=== PATIENT | male | born 1960 | race African-American/Black ===

== ENCOUNTER → 2020-03-05 | Outpatient (CLI) | payer OTHER ==
[2020-03-05 10:15] LABS: ABSOLUTE EOSINOPHILS # (AUTO) 0.1 10^3/uL (0.0-0.6); ABSOLUTE LYMPHOCYTES (AUTO) 1.1 10^3/uL (0.5-4.7); ABSOLUTE MONOCYTES (AUTO) 0.4 10^3/uL (0.1-1.4); ABSOLUTE NEUT (AUTO) 1.9 10^3/uL (1.7-8.2); BASOPHILS % (AUTO) 0.7 % (0-2); EOSINOPHILS % (AUTO) 3.2 % (0-6); HEMATOCRIT 48.1 % (37.9-51.0); HEMOGLOBIN 15.5 g/dL (13.5-17.0); LYMPHOCYTES % (AUTO) 30.3 % (13-45); MEAN CORPUSCULAR HEMOGLOBIN 29.4 pg (27.0-33.4); MEAN CORPUSCULAR HGB CONC 32.1 g/dL (32.0-36.0); MEAN CORPUSCULAR VOLUME 91 fl (80-97); MONOCYTES % (AUTO) 11.6 % (3-13); PLATELET COUNT 124 10^3/uL (150-450); RED BLOOD COUNT 5.27 10^6/uL (4.35-5.55); RED CELL DISTRIBUTION WIDTH 17.6 % (11.5-14.0); SEGMENTED NEUTROPHILS % (AUTO) 54.2 % (42-78); TOTAL CELLS COUNTED % (AUTO) 100 %; WHITE BLOOD COUNT 3.6 10^3/uL (4.0-10.5)
[2020-03-05 10:50] LABS: ALBUMIN 3.5 g/dL (3.5-5.0); ALKALINE PHOSPHATASE 141 U/L (38-126); ANION GAP 7 (5-19); ASPARTATE AMINO TRANSFERASE 19 U/L (17-59); BILIRUBIN,TOTAL 0.5 mg/dL (0.2-1.3); BLOOD UREA NITROGEN 34 mg/dL (7-20); CALCIUM 7.9 mg/dL (8.4-10.2); CARBON DIOXIDE 13 mmol/L (22-30); CHLORIDE 122 mmol/L (98-107); CHOLESTEROL 125.54 mg/dL (0-200); GLUCOSE 159 mg/dL (75-110); TOTAL PROTEIN 6.7 g/dL (6.3-8.2); TRIGLYCERIDES 64 mg/dL (<150)
[2020-03-05 11:01] LABS: DIRECT LDL 74 mg/dL (<100)
== END ==
LOC: CCC 09:21
PROVIDERS: ATTEND Family Medicine
DX: Z13.9 Encounter for screening, unspecified (principal)
CPT/HCPCS: 36415; 80053; 80061; 83036; 84443; 85025

== ENCOUNTER 2020-05-03 12:32 | Inpatient (IN) | payer SELFPAY ==
[2020-05-03] MEDS ORDERED: NORMAL SALINE 1000 ML 1,000 ML IV ONE ×3 (13:10→15:25)
--- NOTE | 2020-05-03 13:14 | ER Document Report ---
ED Medical Screen (RME) - General Chief Complaint: High Blood Sugar Stated Complaint: HIGH BLOOD SUGAR Time Seen by Provider: 05/03/20 13:08 Primary Care Provider: ANAID WHITNEY [Primary Care Provider] - Follow up as needed Mode of Arrival: Ambulatory Information source: Patient Notes: 59-year-old male presents to ED for complaint of blood sugar at home of 455. He states he just moved to the area. He states he has been off of his diabetes medicine for about a month or month and a half. He states he has a history of diabetes and low potassium. He states he is not on any medications at all right now. He states he is trying to get his insurance changed to this area and establish with a new doctor but he needs his medications. He states he has de creased kidney function due to his diabetes. Patient is alert oriented respirations regular nonlabored at this time. I have ordered the DKA protocol to get him started. I have greeted and performed a rapid initial assessment of this patient. A comprehensive ED assessment and evaluation of the patient, analysis of test results and completion of medical decision making process will be conducted by an additional ED providers. Physical Exam - Vital signs Vitals: Temp Pulse Resp BP Pulse Ox 98.7 F 85 18 130/61 H 98 05/03/20 12:41 05/03/20 12:41 05/03/20 12:41 05/03/20 12:41 05/03/20 12:41 Course - Vital Signs Vital signs: Temp Pulse Resp BP Pulse Ox 98.7 F 85 18 130/61 H 98 05/03/20 12:41 05/03/20 12:41 05/03/20 12:41 05/03/20 12:41 05/03/20 12:41 Doctor's Discharge - Discharge Referrals: ANAID WHITNEY [Primary Care Provider] - Follow up as needed
[2020-05-03 14:07] LABS: VENOUS BLOOD BASE EXCESS -18.3 mmol/L; VENOUS BLOOD HCO3 11.2 mmol/L (20-32); VENOUS BLOOD PCO2 39.4 mmHg (35-63)
[2020-05-03 14:10] LABS: VENOUS BLOOD PH 7.07 (7.30-7.42)
[2020-05-03 14:10] LABS: ABSOLUTE EOSINOPHILS # (AUTO) 0.1 10^3/uL (0.0-0.6); ABSOLUTE MONOCYTES (AUTO) 0.4 10^3/uL (0.1-1.4); ABSOLUTE NEUT (AUTO) 2.4 10^3/uL (1.7-8.2); BASOPHILS % (AUTO) 0.5 % (0-2); EOSINOPHILS % (AUTO) 2.2 % (0-6); HEMATOCRIT 47.9 % (37.9-51.0); HEMOGLOBIN 15.5 g/dL (13.5-17.0); LYMPHOCYTES % (AUTO) 25.9 % (13-45); MEAN CORPUSCULAR HEMOGLOBIN 29.2 pg (27.0-33.4); MEAN CORPUSCULAR HGB CONC 32.4 g/dL (32.0-36.0); MEAN CORPUSCULAR VOLUME 90 fl (80-97); PLATELET COUNT 130 10^3/uL (150-450); RED BLOOD COUNT 5.31 10^6/uL (4.35-5.55); RED CELL DISTRIBUTION WIDTH 16.3 % (11.5-14.0); SEGMENTED NEUTROPHILS % (AUTO) 60.4 % (42-78); TOTAL CELLS COUNTED % (AUTO) 100 %; WHITE BLOOD COUNT 3.9 10^3/uL (4.0-10.5)
[2020-05-03 14:21] LABS: APPEARANCE,URINE CLEAR; BILIRUBIN,URINE NEGATIVE (NEGATIVE); COLOR,URINE STRAW; GLUCOSE, URINE >=500 mg/dL (NEGATIVE); KETONES,URINE NEGATIVE (NEGATIVE); LEUKOCYTE ESTERASE,URINE MODERATE (NEGATIVE); NITRITE,URINE NEGATIVE (NEGATIVE); PROTEIN,URINE 100 mg/dL (NEGATIVE); URINE SPECIFIC GRAVITY 1.008; UROBILINOGEN,URINE NEGATIVE mg/dL (<2.0)
[2020-05-03 14:32] LABS: ALBUMIN 3.5 g/dL (3.5-5.0); ALKALINE PHOSPHATASE 192 U/L (38-126); ANION GAP 12 (5-19); ASPARTATE AMINO TRANSFERASE 20 U/L (17-59); BILIRUBIN,DIRECT 0.3 mg/dL (0.0-0.4); BILIRUBIN,TOTAL 0.6 mg/dL (0.2-1.3); BLOOD UREA NITROGEN 34 mg/dL (7-20); CALCIUM 7.7 mg/dL (8.4-10.2); CHLORIDE 116 mmol/L (98-107); POTASSIUM 3.5 mmol/L (3.6-5.0); TOTAL PROTEIN 6.6 g/dL (6.3-8.2)
[2020-05-03 14:58] LABS: CARBON DIOXIDE 10 mmol/L (22-30); GLUCOSE 460 mg/dL (75-110)
[2020-05-03] MEDS ORDERED: NORMAL SALINE 100 ML with INSULIN REGULAR, HUMAN 100 UNIT IV PRN ×2 (15:25)
--- NOTE | 2020-05-03 15:34 | ER Document Report ---
ED Blood Sugar Problem - General Chief Complaint: High Blood Sugar Stated Complaint: HIGH BLOOD SUGAR Time Seen by Provider: 05/03/20 13:08 Primary Care Provider: [facility]ANA[facility] [Primary Care Provider] - Follow up as needed Mode of Arrival: Ambulatory Information source: Patient - HPI Notes: Patient comes in complaining of weakness and being tired. He states that he has been out of his diabetic oral medication for approximately 2 months. He states this is because he recently moved and has been unable to afford his medicines. He states he took his blood sugar at home over the weekend and it was 600 today he took it again and it was 450. He states he called his doctor at the [facility] and they recommended he come to the emergency department. He states he has been urinating more than normal. He denies any fevers cough or cold symptoms. No pain anywhere. He denies any vomiting or diarrhea. He states he was only taking 1 medicine for diabetes and it was an oral medicine. He denies any insulin usage ever. His weakness has been constant. Is been moderate to severe. Is worse with exertion and better with rest. It does radiate throughout his body. - Related Data Allergies/Adverse Reactions: No Known Allergies Allergy (Unverified 05/03/20 13:40) Past Medical History - General Information source: Patient - Social History Smoking Status: Never Smoker Frequency of alcohol use: None Drug Abuse: None Family History: Reviewed & Not Pertinent Endocrine Medical History: Reports: Hx Diabetes Mellitus Type 2 Review of Systems - Review of Systems Constitutional: denies: Chills, Fever Cardiovascular: denies: Chest pain, Palpitations Respiratory: denies: Cough, Short of breath -: Yes All other systems reviewed and negative Physical Exam - Vital signs Vitals: Temp Pulse Resp BP Pulse Ox 98.7 F 85 18 130/61 H 98 05/03/20 12:41 05/03/20 12:41 05/03/20 12:41 05/03/20 12:41 05/03/20 12:41 Interpretation: Normal - General General appearance: Appears well, Alert - HEENT Head: Normocephalic, Atraumatic Eyes: Normal Pupils: PERRL - Respiratory Respiratory status: No respiratory distress Chest status: Nontender Breath sounds: Normal Chest palpation: Normal - Cardiovascular Rhythm: Regular Heart sounds: Normal auscultation Murmur: No - Abdominal Inspection: Normal Distension: No distension Bowel sounds: Normal Tenderness: Nontender Organomegaly: No organomegaly - Back Back: Normal, Nontender - Extremities General upper extremity: Normal inspection, Nontender, Normal color, Normal ROM, Normal temperature General lower extremity: Normal inspection, Nontender, Normal color, Normal ROM, Normal temperature, Normal weight bearing. No: Rosales's sign - Neurological Neuro grossly intact: Yes Cognition: Normal Orientation: AAOx4 Samantha Coma Scale Eye Opening: Spontaneous [place] Coma Scale Verbal: Oriented Samantha Coma Scale Motor: Obeys Commands Samantha Coma Scale Total: 15 Speech: Normal Motor strength normal: LUE, RUE, LLE, RLE Sensory: Normal - Psychological Associated symptoms: Normal affect, Normal mood - Skin Skin Temperature: Warm Skin Moisture: Dry Skin Color: Normal Course - Re-evaluation Re-evalutation: 05/03/20 15:31 Patient presents with weakness and elevated blood sugar. He is acidotic with a pH of 7.07 however he has a normal heart rate and a normal blood pressure. He has been out of his oral medication for over 2 months. Patient will be started on fluids and an insulin drip and admitted to the hospital. - Vital Signs Vital signs: Temp Pulse Resp BP Pulse Ox 98.7 F 85 18 130/61 H 95 05/03/20 12:41 05/03/20 12:41 05/03/20 12:41 05/03/20 12:41 05/03/20 15:00 - Laboratory Result Diagrams: 05/03/20 13:38 05/03/20 13:38 Laboratory results interpreted by me: 05/03/20 05/03/20 05/03/20 13:16 13:38 13:38 WBC 3.9 L RDW 16.3 H Plt Count 130 L VBG pH VBG HCO3 Potassium 3.5 L Chloride 116 H Carbon Dioxide 10 L* BUN 34 H Creatinine 2.72 H Est GFR ( Amer) 29 L Est GFR (MDRD) Non-Af 24 L Glucose 460 H* POC Glucose 407 H* Calcium 7.7 L Alkaline Phosphatase 192 H Urine Protein Urine Glucose (UA) Urine Blood Ur Leukocyte Esterase 05/03/20 05/03/20 13:38 13:42 WBC RDW Plt Count VBG pH 7.07 L* VBG HCO3 11.2 L Potassium Chloride Carbon Dioxide BUN Creatinine Est GFR ( Amer) Est GFR (MDRD) Non-Af Glucose POC Glucose Calcium Alkaline Phosphatase Urine Protein 100 H Urine Glucose (UA) >=500 H Urine Blood SMALL H Ur Leukocyte Esterase MODERATE H - EKG Interpretation by Me EKG shows normal: Sinus rhythm Rate: Normal - 88 Rhythm: NSR [place]/QRS: No: Right axis deviation, Left axis deviation Critical Care Note - Critical Care Note Total time excluding time spent on procedures (mins): 40 Comments: approx 40 min of CC time was spent on this pt doing mutliple recheckcs, reviewing labs, discussing with consultants and talking with family Discharge - Discharge Clinical Impression: Diabetic ketoacidosis Qualifiers: Diabetes mellitus type: type 2 Diabetes mellitus complication detail: without coma Qualified Code(s): E11.10 - Type 2 diabetes mellitus with ketoacidosis without coma Condition: Critical Disposition: ADMITTED INPATIENT Admitting Provider: Paulette (Hospitalist) Unit Admitted: IMCU [facility] [Primary [facility] Provider] - Follow up as needed
[2020-05-03] MEDS ORDERED: DEXTROSE 40% GEL 15 GM TUBE PO PRN ×2 (17:42)
[2020-05-03] MEDS ORDERED: DEXTROSE 50%-WATER 25 GM/50 ML DISP.SYRIN IV PRN ×2 (17:42)
[2020-05-03] MEDS ORDERED: GLUCAGON,HUMAN RECOMB 1 MG INJ IM PRN (17:42)
[2020-05-03] MEDS ORDERED: NORMAL SALINE 1000 ML 1,000 ML IV PRN (17:45)
[2020-05-03] MEDS ORDERED: ONDANSETRON HCL INJ/PF 4 MG/2 ML SDV IV PRN (18:10)
[2020-05-03] MEDS ORDERED: ACETAMINOPHEN 325 MG TABLET PO PRN (18:10)
[2020-05-03 18:55] LABS: ARTERIAL BLOOD BASE EXCESS -18.8 mmol/L; ARTERIAL BLOOD FIO2 21%; ARTERIAL BLOOD HCO3 9.4 mmol/L (20-24); ARTERIAL BLOOD O2 SATURATION 96.4 % (94-98); ARTERIAL BLOOD PCO2 29.9 mmHg (35-45); ARTERIAL BLOOD PO2 110.6 mmHg (80-100); ARTERIAL BLOOD TOTAL CO2 10.3 mmol/L (23-27)
[2020-05-03 18:57] LABS: ARTERIAL BLOOD PH 7.11 (7.35-7.45)
[2020-05-03] MEDS ORDERED: POTASSIUM CHLORIDE 10 MEQ TABLET.ER PO ONE (19:00)
[2020-05-03] MEDS ORDERED: INSULIN LISPRO 100 UNIT/ML 3 ML VIAL ONE (19:06)
--- NOTE | 2020-05-03 19:12 | RADIOLOGY REPORT (SQ) ---
EXAM DESCRIPTION: CHEST SINGLE VIEW IMAGES COMPLETED DATE/TIME: 05/03/2020 6:56 pm REASON FOR STUDY: dyspnea, cough COMPARISON: None. TECHNIQUE: Single frontal radiographic view of the chest acquired. NUMBER OF VIEWS: One view. LIMITATIONS: Partial expiratory lung volumes. FINDINGS: LUNGS AND PLEURA: No pneumothorax. No consolidation or pleural effusion. MEDIASTINUM AND HILAR STRUCTURES: No contour abnormalities. HEART AND VASCULAR STRUCTURES: Heart normal size. BONES: No acute findings. HARDWARE: None in the chest. OTHER: No other significant finding. IMPRESSION: NO ACUTE FINDINGS. TECHNICAL DOCUMENTATION: JOB ID: [id number] 2010 [employer]- All Rights Reserved Reading location - IP/workstation name: [email or web address]
[2020-05-03] MEDS: NORMAL SALINE 1000 ML 1,000 ML IV PRN (19:13)
--- NOTE | 2020-05-03 19:34 | PDOC H&P ---
History of Present Illness Admission Date/PCP: 05/03/20 15:53 [facility] Patient complains of: Elevated blood sugar History of Present Illness: RADHA FLORES is a 59 year old male with a past medical history of diabetes mellitus type 2 for over 20 years. He did have a hemoglobin A1c level tested in February and his provider said it was "good ". Unfortunately they moved from [place] in June and he is reestablishing care locally. He has been out of all of his medicines for 2 months. He states that he was on potassium and sodium bicarbonate tablets in the past. For his diabetes he had been on Lantus in the past. He had a trial of Januvia. He believes it was 25 mg daily and this was discontinued. The last prescription was for Trulicity given once a week but he ran out of that medication as well. He has a history of kidney st ones and reports that he has "one functioning kidney ". He has a history of multiple kidney stones and has undergone lithotripsy. He has a nonproductive cough and denies any fever or chills. He denies known exposure to anyone under investigation or positive for COVID 19. He does state that over the last several weeks his sugars have slowly gotten better. He was initially 600 and it has worked its way down to the 460 tested on admission today. With IV fluids alone his glucose has decreased to 274. He is not sure why he was on the sodium bicarbonate tablets. He believes that it was for stomach acid/reflux. Because of his long history of kidney stones it may have been more related to chronic kidney disease but he is unable to provide full details. Venous blood gas revealed a pH of 7.07 with a PCO2 of 39.4 and a bicarb of 11.2. White blood cell count was slightly low at 3.9 with a hemoglobin of 15.5 and a platelet count of 130. Potassium was 3.5 with a CO2 of 10. BUN was 34 with a creatinine of 2.72 and as noted above his initial glucose was 460. Calcium was 7.7 with a normal albumin. EKG showed normal sinus rhythm with a rate of 88 bpm and no abnormalities. With IV fluids alone (the patient was not given any insulin in the emergency department) his glucose has come down to 274. Urinalysis was negative for ketones but the patient did have glucosuria, proteinuria as well as positive leukocyte esterase and 26 white blood cells per high-power field. Urine culture has been added to the order set. Past Medical History Cardiac Medical History: Denies: Congestive Heart Failure, Coronary Artery Disease, Myocardial Infarction, Hyperlipidema, Hypertension, Peripheral Vascular Disease, Pulmonary Embolism Pulmonary Medical History: Denies: Chronic Obstructive Pulmonary Disease (COPD), Intubation, Pneumonia, Respiratory Failure EENT Medical History: Reports: Cataracts Neurological Medical History: Denies: Ischemic CVA Endocrine Medical History: Reports: Diabetes Mellitus Type 2 Denies: Hyperthyroidism, Hypothyroidism Renal/ Medical History: Reports: Chronic Kidney Disease, Nephrolithiasis Malignancy Medical History: Reports: None GI Medical History: Reports: Gastroesophageal Reflux Disease Denies: Cirrhosis, Diverticulitis, Hepatitis, Peptic Ulcer Disease Musculoskeltal Medical History: Reports: Arthritis Skin Medical History: Denies: Eczema, Psoriasis Psychiatric Medical History: Denies: Alcohol Dependency, Dementia, Depression, Substance Abuse, Tobacco Dependency Traumatic Medical History: Reports: None Hematology: Denies: Anemia, Sickle Cell Disease, Bleeding Tendencies Infectious Medical History: Reports: None Past Surgical History Past Surgical History: Reports: Other - Lithotripsy Social History Information Source: Patient Lives with: Spouse/Significant other Smoking Status: Never Smoker Electronic Cigarette use?: No Frequency of Alcohol Use: None Hx Recreational Drug Use: No Hx Prescription Drug Abuse: No - Advance Directive Resuscitation Status: Full Code Surrogate healthcare decision maker:: His Molly would make decisions if the patient is incapacitated Family History Family History: DM, Hypertension Parental Family History Reviewed: Yes Children Family History Reviewed: NA Sibling(s) Family History Reviewed.: Yes Medication/Allergy Allergies/Adverse Reactions: No Known Allergies Allergy (Unverified 05/03/20 13:40) Review of Systems All systems: reviewed and no additional remarkable complaints except as stated Constitutional: PRESENT: fatigue Eyes: PRESENT: visual disturbances - Bilateral cataracts Respiratory: PRESENT: cough Gastrointestinal: PRESENT: other - Reflux Genitourinary: PRESENT: nocturia - 1-2 times per night Musculoskeletal: PRESENT: muscle weakness - Left hand decreased heater mechanic strength Neurological: PRESENT: tingling - Occasional tingling in his legs Endocrine: PRESENT: polyuria - Increased urine output lately Physical Exam Vital Signs: Temp Pulse Resp BP Pulse Ox 98.7 F 85 15 130/61 H 97 05/03/20 12:41 05/03/20 12:41 05/03/20 14:25 05/03/20 12:41 05/03/20 17:00 Intake & Output 05/02/20 05/03/20 05/04/20 06:59 06:59 06:59 Intake Total 3000 Balance 3000 Weight 81.8 kg General appearance: PRESENT: no acute distress, cooperative, well-developed, well-nourished. ABSENT: disheveled Head exam: PRESENT: atraumatic, normocephalic Eye exam: PRESENT: conjunctival injection, conjunctiva pink, EOMI, PERRLA. ABSENT: periorbital swelling, scleral icterus - Dirty sclera Ear exam: PRESENT: normal external ear exam. ABSENT: bleeding, drainage Mouth exam: PRESENT: dry mucosa, neck supple, tongue midline Neck exam: PRESENT: full ROM. ABSENT: carotid bruit, JVD, lymphadenopathy, thyromegaly, tracheostomy Respiratory exam: PRESENT: clear to auscultation gina, symmetrical, unlabored. ABSENT: accessory muscle use, prolonged expiratory phas, rales, rhonchi, tachypnea, wheezes Cardiovascular exam: PRESENT: RRR, +S1, +S2, systolic murmur - 2/6. ABSENT: bradycardia, diastolic murmur, irregular rhythm, tachycardia Pulses: PRESENT: normal radial pulses, normal dorsalis pedis pul GI/Abdominal exam: PRESENT: normal bowel sounds, soft. ABSENT: distended, gua rding, mass, tenderness Rectal exam: PRESENT: deferred Gentrourinary exam: ABSENT: indwelling catheter Extremities exam: PRESENT: full ROM. ABSENT: calf tenderness, joint swelling, pedal edema Musculoskeletal exam: PRESENT: ambulatory, normal inspection. ABSENT: deformity, dislocation Neurological exam: PRESENT: alert, awake, oriented to person, oriented to place, oriented to time, oriented to situation, CN II-XII grossly intact, motor sensory deficit - Leg exam was normal with regard to strength and gross sensation. Unable to elicit patellar reflexes. Right upper extremity 5/5 strength with no gross abnormal sensation. The left hand heater mechanic strength was 3/5.. ABSENT: altered Psychiatric exam: PRESENT: appropriate affect, normal mood. ABSENT: agitated, anxious Focused psych exam: ABSENT: delusional, paranoid, restlessness Skin exam: PRESENT: dry, intact, normal color, warm. ABSENT: rash Results Laboratory Results: 05/03/20 13:38 05/03/20 13:38 05/03/20 05/03/20 05/03/20 13:38 13:38 13:38 WBC 3.9 L RBC 5.31 Hgb 15.5 Hct 47.9 MCV 90 MCH 29.2 MCHC 32.4 RDW 16.3 H Plt Count 130 L Seg Neutrophils % 60.4 VBG pH VBG pCO2 VBG HCO3 VBG Base Excess Sodium 137.9 Potassium 3.5 L Chloride 116 H Carbon Dioxide 10 L* Anion Gap 12 BUN 34 H Creatinine 2.72 H Est GFR ( Amer) 29 L Glucose 460 H* Calcium 7.7 L Total Bilirubin 0.6 AST 20 Alkaline Phosphatase 192 H Total Protein 6.6 Albumin 3.5 Urine Color STRAW Urine Appearance CLEAR Urine pH 7.0 Ur Specific [place] 1.008 Urine Protein 100 H Urine Glucose (UA) >=500 H Urine Ketones NEGATIVE Urine Blood SMALL H Urine Nitrite NEGATIVE Ur Leukocyte Esterase MODERATE H Urine WBC (Auto) 26 Urine RBC (Auto) 1 05/03/20 13:42 WBC RBC Hgb Hct MCV MCH MCHC RDW Plt Count Seg Neutrophils % VBG pH 7.07 L* VBG pCO2 39.4 VBG HCO3 11.2 L VBG Base Excess -18.3 Sodium Potassium Chloride Carbon Dioxide Anion Gap BUN Creatinine Est GFR ( Amer) Glucose Calcium Total Bilirubin AST Alkaline Phosphatase Total Protein Albumin Urine Color Urine Appearance Urine pH Ur Specific [place] Urine Protein Urine Glucose (UA) Urine Ketones Urine Blood Urine Nitrite Ur Leukocyte Esterase Urine WBC (Auto) Urine RBC (Auto) Assessment and Plan - Diagnosis (1) Hyperglycemia due to type 2 diabetes mellitus Qualifiers: Diabetes mellitus intermission coordinator insulin use: with skilled nursing use Qualified Code(s): E11.65 - Type 2 diabetes mellitus with hyperglycemia; Z79.4 - intermediate (current) use of insulin Is this a current diagnosis for this admission?: Yes Plan: 05/03/2020-the patient has been out of his medications for diabetes for approximately 6 to 8 weeks. He has been checking his glucoses and they have been as high as 600. I do not believe he has seen a practitioner since February when he had blood work and was told that his hemoglobin A1c was "good ". His pH was 7.07 but urinalysis was negative for ketones. He does take 2 sodium bicarbonate tablets 3 times a day and explained to me that was for stomach acid. With fluids alone his glucose came down to 272. I will put the patient on split dose Lantus as well as a Humalog sliding scale with Accu-Cheks at mealtime and bedtime. I have ordered a basic metabolic panel for now and at 23:00 tonight as well as daily labs for the next several days. (2) Metabolic acidosis due to diabetes mellitus Is this a current diagnosis for this admission?: Yes Plan: 05/03/2020-the patient reports that he was on 2 sodium bicarbonate tablets 3 times a day. He is under the impression that this was for stomach acid but he was never on a proton pump inhibitor or H2 jaylan. It is more likely that this was due to a metabolic derangement then purely acid. We will need to get more detailed history. For the time being we will monitor his pH and I have resumed his sodium bicarbonate 1300 mg p.o. with meals. (3) Hypokalemia Is this a current diagnosis for this admission?: Yes Plan: Potassium is 3.5. With the aggressive hydration his potassium will drop and he has been on potassium chloride as an outpatient. I will continue KCl 40 mEq bid and monitor his electrolytes. (4) Acute kidney injury superimposed on chronic kidney disease Is this a current diagnosis for this admission?: Yes Plan: The BUN and creatinine was 34 and 2.72 respectively. From his history of kidney stones and the "nonfunctioning kidney "it is more likely acute on chronic kidney failure. There is likely a component of dehydration from polyuria from his hyperglycemia. His oropharynx was extremely dry as well. He will be getting aggressive fluids and we will monitor his renal function closely. I have also ordered a renal ultrasound to assess both kidneys and see if there is residual evidence of calculi. At this point I have not consulted nephrology but if the patient's status changes we will order the consult. He will also have strict intake and output monitored. (5) Monoparesis of upper extremity affecting left nondominant side Is this a current diagnosis for this admission?: Yes Plan: The patient states that his left hand has been weak for some time. It is better on some days than others. Gross sensation is intact. He has a strong radial pulse. This is not an acute issue. It is an odd presentation for a diabetic neuropathy. Once he is stable consideration for inpatient versus outpatient work-up can be given. He may need nerve conduction studies for definitive diagnosis. (6) Thrombocytopenia Is this a current diagnosis for this admission?: Yes Plan: Platelet count is only 130. He does not report any history of abnormal CBCs. With aggressive fluids his platelet count will decrease. I have ordered serial CBCs to monitor his numbers. (7) Leukopenia Qualifiers: Leukopenia type: neutropenia Neutropenia type: unspecified Qualified Code(s): D70.9 - Neutropenia, unspecified Is this a current diagnosis for this admission?: Yes Plan: His white blood cell count was just under the lower limit normal at 3.9. With aggressive IV fluids his white blood cell count will drop. He does have a cough that he reports is mild and nonproductive. His urinalysis was positive for leukocyte esterase and white blood cells. There could be an underlying infecti on at the root of his abnormal CBC. Will monitor closely. Urine culture has been ordered. Lungs are clear therefore I did not order a chest x-ray. (8) Abnormal finding on urinalysis Is this a current diagnosis for this admission?: Yes Plan: The patient had glucosuria and proteinuria which are not surprising but he did have an elevated leukocyte esterase and 26 white blood cells per high-power field. I have ordered a urine culture. He is afebrile and is not exhibiting any dysuria. I have not started antibiotics at this time but will have a low threshold if symptoms change. (9) Gastroesophageal reflux disease Qualifiers: Esophagitis presence: without esophagitis Qualified Code(s): K21.9 - Gastro-esophageal reflux disease without esophagitis Is this a current diagnosis for this admission?: Yes Plan: The patient reports a history of "acid ". He believes that he is on 1300 mg of sodium bicarbonate 3 times a day for stomach acid. I do not think he is ever tried proton pump inhibitors or H2 blockers. I have continued his sodium bicarbonate and added Protonix 40 mg daily. (10) Cough Is this a current diagnosis for this admission?: Yes Plan: The patient has a nonproductive intermittent cough. Lungs are clear. He is afebrile. At this point we will monitor and treat conservatively. If symptoms worsen consider chest x-ray and additional testing. - Time Time Spent with patient: 35 or more minutes Medications reviewed and adjusted accordingly: Yes Anticipated Discharge Disposition: Home, Self Care Anticipated Discharge Timeframe: Within 96 hours - Inpatient Certification Based on my medical assessment, after consideration of the patient's comorbidities, presenting symptoms, or acuity I expect that the services needed warrant INPATIENT care.: Yes I certify that my determination is in accordance with my understanding of Medicare's requirements for reasonable and necessary INPATIENT services [42 CFR 412.3e].: Yes Medical Necessity: Need Close Monitoring Due to Risk of Patient Decompensation, Need For IV Fluids, Need For Continuous Telemetry Monitoring, Risk of Complication if Not Cared For in Hospital, Other - Glucose monitoring with insulin dosing. Close monitoring of electrolytes.
[2020-05-03 19:36] LABS: ANION GAP 13 (5-19); BLOOD UREA NITROGEN 31 mg/dL (7-20); CHLORIDE 120 mmol/L (98-107); GLUCOSE 296 mg/dL (75-110); POTASSIUM 3.5 mmol/L (3.6-5.0)
[2020-05-03 19:53] LABS: CARBON DIOXIDE 9 mmol/L (22-30)
[2020-05-03] MEDS ORDERED: INSULIN LISPRO 100 UNIT/ML 3 ML VIAL SUBCUT ONE (20:00)
[2020-05-03] MEDS: HEPARIN SOD (PORCINE) 5,000 UNIT/ML 1 ML VIAL SUBCUT SCH (21:12)
[2020-05-03] MEDS: ATORVASTATIN CALCIUM 40 MG TABLET PO SCH (21:21)
[2020-05-03] MEDS: INSULIN LISPRO 100 UNIT/ML 3 ML VIAL SUBCUT SCH (21:36)
[2020-05-03] MEDS: INSULIN GLARGINE,HUM.REC.ANLOG 1,000 UNIT/10 ML VIAL SUBCUT SCH (21:40)
--- NOTE | 2020-05-03 21:53 | EKG REPORT ---
SEVERITY:- NORMAL ECG - SINUS RHYTHM : Confirmed by: Ana Laura Brandon MD 03-May-2020 21:52:56
[2020-05-03 23:20] LABS: BLOOD UREA NITROGEN 31 mg/dL (7-20); CHLORIDE 126 mmol/L (98-107); GLUCOSE 276 mg/dL (75-110); POTASSIUM 3.3 mmol/L (3.6-5.0)
[2020-05-03 23:25] LABS: ANION GAP 6 (5-19)
[2020-05-03 23:36] LABS: CALCIUM 6.8 mg/dL (8.4-10.2); CARBON DIOXIDE 10 mmol/L (22-30)
[2020-05-04] MEDS: NORMAL SALINE 1000 ML 1,000 ML IV PRN ×2 (00:10→04:45)
[2020-05-04] MEDS: GUAIFENESIN/D-METHORPHAN (200-20 MG) SYRUP 10 ML PO PRN (01:41)
[2020-05-04] MEDS: HEPARIN SOD (PORCINE) 5,000 UNIT/ML 1 ML VIAL SUBCUT SCH ×3 (05:33→22:16)
[2020-05-04] MEDS: PANTOPRAZOLE SODIUM 40 MG TABLET.DR PO SCH (05:34)
[2020-05-04 07:05] LABS: ABSOLUTE EOSINOPHILS # (AUTO) 0.1 10^3/uL (0.0-0.6); ABSOLUTE LYMPHOCYTES (AUTO) 1.1 10^3/uL (0.5-4.7); ABSOLUTE MONOCYTES (AUTO) 0.3 10^3/uL (0.1-1.4); BASOPHILS % (AUTO) 0.3 % (0-2); EOSINOPHILS % (AUTO) 1.7 % (0-6); HEMATOCRIT 46.6 % (37.9-51.0); HEMOGLOBIN 15.5 g/dL (13.5-17.0); LYMPHOCYTES % (AUTO) 23.6 % (13-45); MEAN CORPUSCULAR HEMOGLOBIN 29.4 pg (27.0-33.4); MEAN CORPUSCULAR HGB CONC 33.2 g/dL (32.0-36.0); MEAN CORPUSCULAR VOLUME 88 fl (80-97); MONOCYTES % (AUTO) 7.5 % (3-13); PLATELET COUNT 116 10^3/uL (150-450); RED BLOOD COUNT 5.27 10^6/uL (4.35-5.55); RED CELL DISTRIBUTION WIDTH 16.5 % (11.5-14.0); SEGMENTED NEUTROPHILS % (AUTO) 66.9 % (42-78); TOTAL CELLS COUNTED % (AUTO) 100 %; WHITE BLOOD COUNT 4.5 10^3/uL (4.0-10.5)
[2020-05-04 07:17] LABS: BLOOD UREA NITROGEN 31 mg/dL (7-20); CHLORIDE 125 mmol/L (98-107); CHOLESTEROL 140.47 mg/dL (0-200); GLUCOSE 265 mg/dL (75-110); POTASSIUM 3.7 mmol/L (3.6-5.0); TRIGLYCERIDES 147 mg/dL (<150)
[2020-05-04 07:24] LABS: ANION GAP 8 (5-19)
[2020-05-04 07:28] LABS: DIRECT LDL 75 mg/dL (<100)
[2020-05-04 07:50] LABS: CALCIUM 6.8 mg/dL (8.4-10.2); CARBON DIOXIDE 9 mmol/L (22-30)
[2020-05-04] MEDS ORDERED: INFLUENZA QUAD (6MOS+) 2020-21 VAC 0.5 ML SYR IM ONE (08:00)
[2020-05-04] MEDS ORDERED: RINGERS SOLUTION,LACTATED 1,000 ML IV PRN (08:10)
[2020-05-04] MEDS ORDERED: RINGERS SOLUTION,LACTATED 1,000 ML IV ONE (08:10)
[2020-05-04] MEDS: SODIUM BICARBONATE 650 MG TABLET PO SCH ×3 (08:45→17:38)
[2020-05-04] MEDS: INSULIN LISPRO 100 UNIT/ML 3 ML VIAL SUBCUT SCH ×4 (08:45→22:16)
--- NOTE | 2020-05-04 08:47 | RADIOLOGY REPORT (SQ) ---
EXAM DESCRIPTION: U/S RETROPERITON LTD IMAGES COMPLETED DATE/TIME: 05/04/2020 6:36 am REASON FOR STUDY: acute kidney inj. Hx renal calculi COMPARISON: None. TECHNIQUE: Dynamic and static grayscale images acquired of the kidneys and bladder and recorded on P ACS. Additional selected color Doppler and spectral images recorded. LIMITATIONS: None. FINDINGS: RIGHT KIDNEY: The right kidney measures 11.1 x 6.9 x 6.4 cm, normal size. There are mult iple calcifications present with the largest measured 2.7 cm. No evidence of hydronephrosis. LEFT KIDNEY: Multi-cystic enlarged left kidney measures 19.3 x 10.5 x 10.8 cm. The cyst are of vari ous sizes. BLADDER: No masses. Bilateral ureteral jets are not visualized. Prevoid volume 313.4 cc. OTHER FINDINGS: No other significant finding. IMPRESSION: 1. Multicystic enlarged left kidney. 2. Multiple nonobstructing right renal calculi. 3. Bladder volume as above. TECHNICAL DOCUMENTATION: JOB ID: [id number] 2010 [employer]- All Rights Reserved Reading location - IP/workstation name: [email or web address]
[2020-05-04] MEDS: POTASSIUM CHLORIDE 10 MEQ TABLET.ER PO SCH ×2 (09:14→22:17)
[2020-05-04] MEDS: LISINOPRIL 5 MG TABLET PO SCH (09:14)
[2020-05-04] MEDS: DOCUSATE SODIUM 100 MG CAPSULE PO SCH ×2 (09:14→17:37)
[2020-05-04] MEDS: INSULIN GLARGINE,HUM.REC.ANLOG 1,000 UNIT/10 ML VIAL SUBCUT SCH (09:17)
[2020-05-04] MEDS: PANTOT AC/MIN OIL/PET HY-PHL OINT 50 GM TOP SCH ×2 (09:18→17:40)
[2020-05-04 11:01] LABS: ARTERIAL BLOOD BASE EXCESS -18.6 mmol/L; ARTERIAL BLOOD H2CO3 0.87 mmol/L (1.05-1.35); ARTERIAL BLOOD HCO3 9.3 mmol/L (20-24); ARTERIAL BLOOD O2 SATURATION 95.6 % (94-98); ARTERIAL BLOOD PCO2 28.8 mmHg (35-45); ARTERIAL BLOOD PO2 100.7 mmHg (80-100); ARTERIAL BLOOD TOTAL CO2 10.2 mmol/L (23-27)
[2020-05-04 11:04] LABS: ARTERIAL BLOOD FIO2 ROOM TEMP
[2020-05-04 11:09] LABS: ARTERIAL BLOOD PH 7.13 (7.35-7.45)
[2020-05-04] MEDS ORDERED: PHARMACY COMMUNICATION ORDER MC NR (11:45)
[2020-05-04] MEDS ORDERED: 1/2 NORMAL SALINE 1,000 ML with SODIUM BICARBONATE 100 MEQ IV PRN ×2 (12:06)
[2020-05-04] MEDS: CALCIUM CARBONATE 600 MG/VITAMIN D3 400 UNIT TABLET PO SCH ×2 (14:34→17:40)
[2020-05-04 15:42] LABS: ANION GAP 10 (5-19); BLOOD UREA NITROGEN 28 mg/dL (7-20); CHLORIDE 125 mmol/L (98-107); GLUCOSE 257 mg/dL (75-110); POTASSIUM 3.8 mmol/L (3.6-5.0)
[2020-05-04 15:53] LABS: CALCIUM 6.7 mg/dL (8.4-10.2)
[2020-05-04 15:54] LABS: CARBON DIOXIDE 7 mmol/L (22-30)
[2020-05-04] MEDS: 1/2 NORMAL SALINE 1,000 ML with SODIUM BICARBONATE 50 MEQ IV PRN ×2 (16:17)
[2020-05-04] MEDS: HUM INSULIN NPH/REG INSULIN HM 100 UNIT/1 ML 3 ML SUBCUT SCH (17:38)
--- NOTE | 2020-05-04 19:07 | PDOC PROGRESS REPORT ---
Subjective Progress Note for:: 05/04/20 Subjective:: Patient was seen on morning rounds. He was found resting in bed, comfortably, on room air. He has no complaints at this time; denies all symptoms. He specifically denies fever, chills, chest pain, palpitations, dyspnea, abdominal pain, nausea vomiting and diarrhea. He reports good appetite. Patient confirms that he ran out of insurance several months ago and has been without his medications since that time. He does confirm that in the past he has had "trouble with high acid" requiring medications "to keep me balanced." He cannot recall his medication or dosing at this time. He has no questions or concerns at this time. No concerns per nursing. Reason For Visit: HYPERGLYCEMIA SECONDARY TO DIABETES MELLITUS Physical Exam Vital Signs: Temp Pulse Resp BP Pulse Ox 97.7 F 89 16 141/69 H 98 05/04/20 15:10 05/04/20 15:07 05/04/20 15:07 05/04/20 15:07 05/04/20 15:07 Intake & Output 05/03/20 05/04/20 05/05/20 06:59 06:59 06:59 Intake Total 5687 481 Balance 5687 481 Weight 85 kg General appearance: PRESENT: no acute distress, cooperative, well-developed, well-nourished - overweight Head exam: PRESENT: atraumatic, normocephalic Eye exam: PRESENT: conjunctiva pink, EOMI, PERRLA. ABSENT: scleral icterus Mouth exam: PRESENT: moist, tongue midline Respiratory exam: PRESENT: clear to auscultation gina, symmetrical, unlabored, other - room air. ABSENT: rales, rhonchi, wheezes Cardiovascular exam: PRESENT: RRR, +S1, +S2, systolic murmur. ABSENT: diastolic murmur, rubs Pulses: PRESENT: normal dorsalis pedis pul Vascular exam: PRESENT: normal capillary refill GI/Abdominal exam: PRESENT: normal bowel sounds, soft. ABSENT: distended, guarding, mass, organolmegaly, rebound, tenderness Rectal exam: PRESENT: deferred Extremities exam: PRESENT: full ROM. ABSENT: calf tenderness, clubbing, pedal edema Musculoskeletal exam: PRESENT: ambulatory Neurological exam: PRESENT: alert, awake, oriented to person, oriented to place, oriented to time, oriented to situation, CN II-XII grossly intact. ABSENT: motor sensory deficit Psychiatric exam: PRESENT: appropriate affect, normal mood. ABSENT: homicidal ideation, suicidal ideation Skin exam: PRESENT: dry, intact, warm. ABSENT: cyanosis, rash Results Laboratory Results: 05/04/20 06:40 05/04/20 14:08 05/03/20 05/03/20 05/03/20 18:35 19:09 22:55 WBC RBC Hgb Hct MCV MCH MCHC RDW Plt Count Seg Neutrophils % Carbonic Acid 0.90 L HCO3/H2CO3 Ratio 10:1 ABG pH 7.11 L* ABG pCO2 29.9 L ABG pO2 110.6 H ABG HCO3 9.4 L ABG O2 Saturation 96.4 ABG Base Excess -18.8 FiO2 21% Sodium 141.5 142.2 Potassium 3.5 L 3.3 L Chloride 120 H 126 H Carbon Dioxide 9 L* 10 L* Anion Gap 13 6 BUN 31 H 31 H Creatinine 2.21 H 2.84 H Est GFR ( Amer) 37 L 28 L Glucose 296 H 276 H Calcium 7.0 L* 6.8 L* Magnesium 1.9 Albumin Triglycerides Cholesterol LDL Cholesterol Direct VLDL Cholesterol HDL Cholesterol 05/04/20 05/04/20 05/04/20 06:40 06:40 06:40 WBC 4.5 RBC 5.27 Hgb 15.5 Hct 46.6 MCV 88 MCH 29.4 MCHC 33.2 RDW 16.5 H Plt Count 116 L Seg Neutrophils % 66.9 Carbonic Acid HCO3/H2CO3 Ratio ABG pH ABG pCO2 ABG pO2 ABG HCO3 ABG O2 Saturation ABG Base Excess FiO2 Sodium 142.3 Potassium 3.7 Chloride 125 H Carbon Dioxide 9 L* Anion Gap 8 BUN 31 H Creatinine 2.55 H Est GFR ( Amer) 32 L Glucose 265 H Calcium 6.8 L* Magnesium 1.8 Albumin 2.9 L Triglycerides 147 Cholesterol 140.47 LDL Cholesterol Direct 75 VLDL Cholesterol 29.0 HDL Cholesterol 25 L 05/04/20 05/04/20 10:47 14:08 WBC RBC Hgb Hct MCV MCH MCHC RDW Plt Count Seg Neutrophils % Carbonic Acid 0.87 L HCO3/H2CO3 Ratio 10:1 ABG pH 7.13 L* ABG pCO2 28.8 L ABG pO2 100.7 H ABG HCO3 9.3 L ABG O2 Saturation 95.6 ABG Base Excess -18.6 FiO2 ROOM TEMP Sodium 141.6 Potassium 3.8 Chloride 125 H Carbon Dioxide 7 L* Anion Gap 10 BUN 28 H Creatinine 2.40 H Est GFR ( Amer) 34 L Glucose 257 H Calcium 6.7 L* Magnesium Albumin Triglycerides Cholesterol LDL Cholesterol Direct VLDL Cholesterol HDL Cholesterol Impressions: Chest X-Ray 05/03/20 00:00 IMPRESSION: NO ACUTE FINDINGS. Renal Ultrasound 05/04/20 07:00 IMPRESSION: 1. Multicystic enlarged left kidney. 2. Multiple nonobstructing right renal calculi. 3. Bladder volume as above. Assessment and Plan - Diagnosis (1) Metabolic acidosis due to diabetes mellitus Is this a current diagnosis for this admission?: Yes Plan: Essentially unchanged despite IVF and start of p.o. Bicarb. Acidosis with pH 7.3, PCO2 20.8, HCO3 9.3. Nephrology is been consulted. Discussed with Dr. Humphreys; recommended starting bicarb drip Will continue bicarb 1300 mg TID with meals. Trend chemistries. (2) Acute kidney injury superimposed on chronic kidney disease Is this a current diagnosis for this admission?: Yes Plan: Improved; Cr 2.72-> 2.84-> 2.40. Unclear baseline. Renal ultrasound revealed multiple nonobstructing right renal calculi. Multicystic enlarged left kidney. Nephrology is consulted. Discussed with Dr. Humphreys today. For management of metabolic acidosis, is recommended bicarb drip. We will continue gentle IV fluids. Avoid nephrotoxic medication as able. Trend chemistries. (3) Hyperglycemia due to type 2 diabetes mellitus Qualifiers: Diabetes mellitus superintendent terminal insulin use: with senior living use Qualified Code(s): E11.65 - Type 2 diabetes mellitus with hyperglycemia; Z79.4 - shelter (current) use of insulin Is this a current diagnosis for this admission?: Yes Plan: Has been without medications for several months. A1c 9.2%. Patient is placed on a consistent carb diet. Have started insulin 70/30; 12 units every morning and 6 units each evening. Accu-Cheks before meals and at bedtime with Humalog for sliding scale coverage. Hypoglycemia protocol in place. Registered dietitian consumer educator consulted. (4) Abnormal finding on urinalysis Is this a current diagnosis for this admission?: Yes Plan: The patient had glucosuria and proteinuria which are not surprising but he did have an elevated leukocyte esterase and 26 white blood cells per high-power field. He is afebrile and is not exhibiting any dysuria. Urine culture is pending. Will hold on antibiotics at this time; low threshold if symptoms change. (5) Gastroesophageal reflux disease Qualifiers: Esophagitis presence: without esophagitis Qualified Code(s): K21.9 - Gastro-esophageal reflux disease without esophagitis Is this a current diagnosis for this admission?: Yes Plan: Continue Protonix 40 mg daily. (6) Hypokalemia Is this a current diagnosis for this admission?: Yes Plan: Replete. Continue potassium 40 meq twice daily. Nephrology is now consulted. (7) Leukopenia Qualifiers: Leukopenia type: neutropenia Neutropenia type: unspecified Qualified Code(s): D70.9 - Neutropenia, unspecified Is this a current diagnosis for this admission?: Yes (8) Thrombocytopenia Is this a current diagnosis for this admission?: Yes Plan: Platelet count is only 130 at admission; decreased to 116 with IV fluid resuscitation. He does not report any history of abnormal CBCs; though patient is a poor historian with noncompliance due to financial/insurance issues. With Follow-up CBC. (9) Cough Is this a current diagnosis for this admission?: Yes Plan: No complaint of cough today. The patient has a nonproductive intermittent cough. Lungs are clear. He is afebrile. At this point we will monitor and treat conservatively. No indications for antibiotics at this time. 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 Previously reported that his left hand has been weak for some time. Exam was benign. May require outpatient Nerve conduction studies. - Time Time Spent with patient: 35 or more minutes Medications reviewed and adjusted accordingly: Yes Anticipated Discharge Disposition: Home, Self Care Anticipated Discharge Timeframe: undetermined
[2020-05-04] MEDS: ATORVASTATIN CALCIUM 40 MG TABLET PO SCH (22:17)
[2020-05-04 22:48] LABS: ANION GAP 6 (5-19); BLOOD UREA NITROGEN 29 mg/dL (7-20); CARBON DIOXIDE 11 mmol/L (22-30); CHLORIDE 123 mmol/L (98-107); GLUCOSE 155 mg/dL (75-110); POTASSIUM 3.3 mmol/L (3.6-5.0)
[2020-05-04 23:03] LABS: CALCIUM 6.6 mg/dL (8.4-10.2)
[2020-05-05] MEDS: HEPARIN SOD (PORCINE) 5,000 UNIT/ML 1 ML VIAL SUBCUT SCH ×3 (05:15→22:08)
[2020-05-05 05:25] LABS: ANION GAP 8 (5-19); BLOOD UREA NITROGEN 29 mg/dL (7-20); CARBON DIOXIDE 11 mmol/L (22-30); CHLORIDE 123 mmol/L (98-107); GLUCOSE 126 mg/dL (75-110); POTASSIUM 3.6 mmol/L (3.6-5.0)
[2020-05-05] MEDS: 1/2 NORMAL SALINE 1,000 ML with SODIUM BICARBONATE 50 MEQ IV PRN ×2 (05:29)
[2020-05-05] MEDS: PANTOPRAZOLE SODIUM 40 MG TABLET.DR PO SCH (05:29)
[2020-05-05] MEDS: POTASSIUM CHLORIDE 10 MEQ TABLET.ER PO SCH ×2 (09:15→22:26)
[2020-05-05] MEDS: LISINOPRIL 5 MG TABLET PO SCH (09:15)
[2020-05-05] MEDS: CALCIUM CARBONATE 600 MG/VITAMIN D3 400 UNIT TABLET PO SCH ×2 (09:15→17:49)
[2020-05-05] MEDS: DOCUSATE SODIUM 100 MG CAPSULE PO SCH ×2 (09:15→17:49)
[2020-05-05] MEDS: SODIUM BICARBONATE 650 MG TABLET PO SCH ×3 (09:15→16:30)
[2020-05-05] MEDS: HUM INSULIN NPH/REG INSULIN HM 100 UNIT/1 ML 3 ML SUBCUT SCH ×2 (09:16→16:30)
[2020-05-05] MEDS: INSULIN LISPRO 100 UNIT/ML 3 ML VIAL SUBCUT SCH ×4 (09:16→22:25)
[2020-05-05] MEDS: PANTOT AC/MIN OIL/PET HY-PHL OINT 50 GM TOP SCH ×2 (09:19→17:49)
[2020-05-05] MEDS: FUROSEMIDE 20 MG TABLET PO SCH (12:51)
[2020-05-05 16:52] LABS: ANION GAP 5 (5-19); BLOOD UREA NITROGEN 29 mg/dL (7-20); CARBON DIOXIDE 13 mmol/L (22-30); CHLORIDE 123 mmol/L (98-107); GLUCOSE 174 mg/dL (75-110); POTASSIUM 3.4 mmol/L (3.6-5.0)
--- NOTE | 2020-05-05 17:49 | PDOC PROGRESS REPORT ---
Subjective Progress Note for:: 05/05/20 Subjective:: Patient was seen on afternoon rounds. He was found sitting up to the edge of the bed, comfortably, on room air eating his lunch. He has no complaints at this time; denies all symptoms. Discussed change in insulin regimen so that this would be more financially manageable. We also discussed pending nephrology consultation to evaluate renal function and assist with managing his acidosis. He denies fever, chills, chest pain, palpitations, dyspnea, abdominal pain, n ausea vomiting and diarrhea. He reports good appetite. He has no new questions or concerns at this time. No concerns per nursing. Reason For Visit: HYPERGLYCEMIA SECONDARY TO DIABETES MELLITUS Physical Exam Vital Signs: Temp Pulse Resp BP Pulse Ox 97.8 F 83 18 135/77 H 100 05/05/20 16:16 05/05/20 16:16 05/05/20 16:16 05/05/20 16:16 05/05/20 16:16 Intake & Output 05/04/20 05/05/20 05/06/20 06:59 06:59 06:59 Intake Total 5687 2231 Output Total 400 Balance 5687 1831 Weight 85 kg 87 kg General appearance: PRESENT: no acute distress, cooperative, well-developed, well-nourished - overweight Head exam: PRESENT: atraumatic, normocephalic Eye exam: PRESENT: conjunctiva pink, EOMI, PERRLA. ABSENT: scleral icterus Mouth exam: PRESENT: moist, tongue midline Respiratory exam: PRESENT: clear to auscultation gina, symmetrical, unlabored. ABSENT: rales, rhonchi, wheezes Cardiovascular exam: PRESENT: RRR, +S1, +S2. ABSENT: diastolic murmur, rubs, systolic murmur Vascular exam: PRESENT: normal capillary refill Extremities exam: PRESENT: full ROM. ABSENT: calf tenderness, clubbing, pedal edema Musculoskeletal exam: PRESENT: ambulatory Neurological exam: PRESENT: alert, awake, oriented to person, oriented to place, oriented to time, oriented to situation, CN II-XII grossly intact. ABSENT: motor sensory deficit Psychiatric exam: PRESENT: appropriate affect, normal mood. ABSENT: homicidal ideation, suicidal ideation Skin exam: PRESENT: dry, intact, warm. ABSENT: cyanosis, rash Results Laboratory Results: 05/04/20 06:40 05/05/20 15:26 05/04/20 05/05/20 05/05/20 22:01 04:39 15:26 Sodium 139.8 142.2 141.1 Potassium 3.3 L 3.6 3.4 L Chloride 123 H 123 H 123 H Carbon Dioxide 11 L 11 L 13 L Anion Gap 6 8 5 BUN 29 H 29 H 29 H Creatinine 2.23 H 2.28 H 2.20 H Est GFR ( Amer) 37 L 36 L 37 L Glucose 155 H 126 H 174 H Calcium 6.6 L* 7.0 L* 7.0 L* Magnesium 1.8 05/04/20 00:15 Clean Catch Midstream Urine Culture - Final Mixed Urogenital Patsy Impressions: Chest X-Ray 05/03/20 00:00 IMPRESSION: NO ACUTE FINDINGS. Renal Ultrasound 05/04/20 07:00 IMPRESSION: 1. Multicystic enlarged left kidney. 2. Multiple nonobstructing right renal calculi. 3. Bladder volume as above. Assessment and Plan - Diagnosis (1) Metabolic acidosis due to diabetes mellitus Is this a current diagnosis for this admission?: Yes Plan: Slightly improved this afternoon. ABG revealed metabolic acidosis with pH 7.3, PCO2 20.8, HCO3 9.3. Bicarb w/ slight upward trend; 10-> 9-> 7-> 11->13 Nephrology has been consulted. Appreciate their evaluation and recommendations. Continue bicarb drip Will continue bicarb 1300 mg TID with meals. Trend chemistries. (2) Acute kidney injury superimposed on chronic kidney disease Is this a current diagnosis for this admission?: Yes Plan: Improved; Cr 2.72-> 2.84-> 2.40-> 2.20. Likely approaching baseline. Renal ultrasound revealed multiple nonobstructing right renal calculi. Multicystic enlarged left kidney. Nephrology is consulted. Appreciate their evaluation and recommendations. We will continue gentle IV fluids. Nephrology has started low dose po Furosemide. Avoid nephrotoxic medication as able. Trend chemistries. (3) Hyperglycemia due to type 2 diabetes mellitus Qualifiers: Diabetes mellitus predatory animal exterminator insulin use: with predatory animal exterminator use Qualified Code(s): E11.65 - Type 2 diabetes mellitus with hyperglycemia; Z79.4 - predatory animal exterminator (current) use of insulin Is this a current diagnosis for this admission?: Yes Plan: Has been without medications for several months. A1c 9.2%. Patient is placed on a consistent carb diet. Have started insulin 70/30; 12 units every morning and 6 units each evening. Bgl appears well controlled on current dosing. Accu-Cheks before meals and at bedtime with Humalog for sliding scale coverage. Hypoglycemia protocol in place. Registered dietitian nurses educator consulted. (4) Gastroesophageal reflux disease Qualifiers: Esophagitis presence: without esophagitis Qualified Code(s): K21.9 - Gastro-esophageal reflux disease without esophagitis Is this a current diagnosis for this admission?: Yes Plan: Continue Protonix 40 mg daily. (5) Hypokalemia Is this a current diagnosis for this admission?: Yes Plan: Replete. Continue potassium 40 meq twice daily. Nephrology is now consulted. (6) Thrombocytopenia Is this a current diagnosis for this admission?: Yes Plan: Platelet count is only 130 at admission; decreased to 116 with IV fluid resuscitation. He does not report any history of abnormal CBCs; though patient is a poor historian with noncompliance due to financial/insurance issues. With Follow-up CBC. (7) Cough Is this a current diagnosis for this admission?: Yes Plan: No complaint of cough today. The patient has a nonproductive intermittent cough. Lungs are clear. He is afebrile. At this point we will monitor and treat conservatively. No indications for antibiotics at this time. 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 Previously reported that his left hand has been weak for some time. Exam was benign. May require outpatient Nerve conduction studies. (9) Abnormal finding on urinalysis Is this a current diagnosis for this admission?: Yes Plan: The patient had glucosuria and proteinuria which are not surprising but he did have an elevated leukocyte esterase and 26 white blood cells per high-power field. He is afebrile and is not exhibiting any dysuria. Urine culture shows nml patsy Will hold on antibiotics at this time; low threshold if symptoms change. (10) Leukopenia Qualifiers: Leukopenia type: neutropenia Neutropenia type: unspecified Qualified Code(s): D70.9 - Neutropenia, unspecified Is this a current diagnosis for this admission?: Yes Plan: Reolved. - Time Time Spent with patient: 25-34 minutes Medications reviewed and adjusted accordingly: Yes Anticipated Discharge Disposition: Home, Self Care Anticipated Discharge Timeframe: undetermined
--- NOTE | 2020-05-05 20:29 | PDOC CONSULTATION ---
Consultation Consult Date: 05/05/20 Provider Consulted: Thanh CALVO Consult reason:: CKD/ADPKD History of Present Illness Admission Date/PCP: 05/03/20 15:53 [facility] History of Present Illness: RADHA FLORES is a 59 year old male with a past medical history of diabetes mellitus type 2 for 20+ years, frequent kidney stones, metabolic acidosis on bicarb previously, hypokalemia and one working kidney (apparently). He came to the hospital for a severely elevated blood sugar. He was following a primary in [place], and then lost his insurance. Shortly after that he was moved up to [place] for his job. He was being seen by [facility] for his blood sugars. He has not been able to be on medications for several months due to the lack of insurance. Due to his severely high blood sugar he was told to go to the ER. In the ER he was found to have a creatinine of 2.72, bun of 34, CO2 of 10, potassium of 3.5, glucose of 460. A1c was 9.2. Clear chest x-ray. He was given IV fluids, started on PO sodium bicarb, klor con and insulin for the blood suga rs. Since being in the hospital the creatinine has improved 2.2, blood sugars are better controlled. Bicarb continues to be at the 9 to 10 range. He was just started on a bicarb drip of 1 amp in 1/2 normal at 75mL hour at 5pm yesterday. Today he claims to be doing well. He denies any chest pain, SOB, n/v/d/c. He denies previously seeing a licensed prosthetist. Renal ultrasound showed a cystic enlarged left kidney. He was previously told that his kidney did not work on the left. He does not remember who told him. Past Medical History Cardiac Medical History: Denies: Coronary Artery Disease, Hyperlipidemia, Myocardial Infarction, Peripheral Vascular Disease, Pulmonary Embolism Pulmonary Medical History: Denies: Chronic Obstructive Pulmonary Disease (COPD), Intubation, Pneumonia, Respiratory Failure EENT Medical History: Reports: Cataracts Neurological Medical History: Denies: Ischemic CVA Endocrine Medical History: Reports: Diabetes Mellitus Type 2 Denies: Hyperthyroidism, Hypothyroidism Complications of Diabetes: Reports: None Renal/ Medical History: Reports: Nephrolithiasis Malignancy Medical History: Reports: None GI Medical History: Reports: Gastroesophageal Reflux Disease Denies: Cirrhosis, Diverticulitis, Hepatitis, Peptic Ulcer Disease Musculoskeltal Medical History: Reports: Arthritis Skin Medical History: Denies: Eczema, Psoriasis Psychiatric Medical History: Denies: Alcohol Dependency, Dementia, Depression, Substance Abuse, Tobacco Dependency Traumatic Medical History: Reports: None Infectious Medical History: Reports: None Past Surgical History Past Surgical History: Reports: Other - Lithotripsy Social History Lives with: Spouse/Significant other Smoking Status: Never Smoker Electronic Cigarette use?: No Frequency of Alcohol Use: None Hx Recreational Drug Use: No Drugs: None Hx Prescription Drug Abuse: No - Advance Directive Resuscitation Status: Full Code Family History Parental Family History Reviewed: Yes Children Family History Reviewed: Unknown Sibling(s) Family History Reviewed.: Unknown Medication/Allergy Allergies/Adverse Reactions: No Known Allergies Allergy (Unverified 05/03/20 13:40) Review of Systems Constitutional: PRESENT: weakness. ABSENT: anorexia, chills, fever(s) Eyes: ABSENT: visual disturbances Cardiovascular: ABSENT: chest pain, dyspnea on exertion, edema, orthropnea Respiratory: ABSENT: cough, dyspnea Gastrointestinal: ABSENT: abdominal pain, diarrhea, nausea, vomiting Genitourinary: ABSENT: difficulty urinating, dysuria Neurological: PRESENT: weakness. ABSENT: confusion, numbness Physical Exam Vital Signs: Temp Pulse Resp BP Pulse Ox 97.8 F 87 18 126/75 H 100 05/05/20 12:23 05/05/20 12:23 05/05/20 12:23 05/05/20 12:23 05/05/20 12:23 Intake & Output 05/04/20 05/05/20 05/06/20 06:59 06:59 06:59 Intake Total 5687 2231 Output Total 400 Balance 5687 1831 Weight 85 kg 87 kg General appearance: PRESENT: no acute distress, well-developed, well-nourished Mouth exam: PRESENT: moist, neck supple Neck exam: ABSENT: JVD, tenderness Respiratory exam: PRESENT: clear to auscultation gina. ABSENT: accessory muscle use, crackles, rales, tachypnea Cardiovascular exam: PRESENT: +S1, +S2 GI/Abdominal exam: PRESENT: soft. ABSENT: distended, hernia, tenderness Extremities exam: PRESENT: +1 edema. ABSENT: pedal edema, +2 edema Neurological exam: PRESENT: alert, awake, oriented to person, oriented to place, oriented to time, oriented to situation Skin exam: PRESENT: dry, intact, warm Results Laboratory Results: 05/04/20 06:40 05/05/20 04:39 05/04/20 05/04/20 05/05/20 14:08 22:01 04:39 Sodium 141.6 139.8 142.2 Potassium 3.8 3.3 L 3.6 Chloride 125 H 123 H 123 H Carbon Dioxide 7 L* 11 L 11 L Anion Gap 10 6 8 BUN 28 H 29 H 29 H Creatinine 2.40 H 2.23 H 2.28 H Est GFR ( Amer) 34 L 37 L 36 L Glucose 257 H 155 H 126 H Calcium 6.7 L* 6.6 L* 7.0 L* Magnesium 1.8 Impressions: Chest X-Ray 05/03/20 00:00 IMPRESSION: NO ACUTE FINDINGS. Renal Ultrasound 05/04/20 07:00 IMPRESSION: 1. Multicystic enlarged left kidney. 2. Multiple nonobstructing right renal calculi. 3. Bladder volume as above. Assessment & Plan - Diagnosis (1) Acute kidney injury superimposed on chronic kidney disease Is this a current diagnosis for this admission?: Yes Plan: Looks to have been from dehydration from diabetic ketoacidosis. Looks to possibly be at his baseline with his history of poorly controlled diabetes, a kidney that does not work and history of kidney stones. IF it does not improve more tomorrow then he is likely at baseline. Will follow up with labs. (2) Metabolic acidosis due to diabetes mellitus Is this a current diagnosis for this admission?: Yes Plan: Looks to be related to kidney disease. Will continue on bicarb drip and po bicarb. If it does not improve than the bicarb drip will need to be changed to 1/4 NS with two amps of bicarb. Follow up tomorrow with labs since it is improving. (3) Hypokalemia Is this a current diagnosis for this admission?: Yes Plan: May need to go up on his supplements with the bicarb that is being given. (4) Hypocalcemia Plan: will look to start him on calcium supplements. Get a corrected calcium, phosphorus and intact PTH (5) Thrombocytopenia Is this a current diagnosis for this admission?: Yes Plan: per hospitalist services
[2020-05-05] MEDS: ATORVASTATIN CALCIUM 40 MG TABLET PO SCH (22:26)
[2020-05-06] MEDS: HEPARIN SOD (PORCINE) 5,000 UNIT/ML 1 ML VIAL SUBCUT SCH ×3 (05:01→21:41)
[2020-05-06 05:33] LABS: ALBUMIN 2.8 g/dL (3.5-5.0); ANION GAP 11 (5-19); BLOOD UREA NITROGEN 30 mg/dL (7-20); CALCIUM 7.4 mg/dL (8.4-10.2); CARBON DIOXIDE 12 mmol/L (22-30); CHLORIDE 121 mmol/L (98-107); GLUCOSE 150 mg/dL (75-110); PHOSPHORUS 2.7 mg/dL (2.5-4.5); POTASSIUM 3.9 mmol/L (3.6-5.0)
[2020-05-06] MEDS: PANTOPRAZOLE SODIUM 40 MG TABLET.DR PO SCH (05:38)
[2020-05-06] MEDS: INSULIN LISPRO 100 UNIT/ML 3 ML VIAL SUBCUT SCH ×4 (09:10→21:38)
[2020-05-06] MEDS: LISINOPRIL 5 MG TABLET PO SCH (09:32)
[2020-05-06] MEDS: HUM INSULIN NPH/REG INSULIN HM 100 UNIT/1 ML 3 ML SUBCUT SCH ×2 (09:32→17:23)
[2020-05-06] MEDS: CALCIUM CARBONATE 600 MG/VITAMIN D3 400 UNIT TABLET PO SCH ×2 (09:32→17:23)
[2020-05-06] MEDS: FUROSEMIDE 20 MG TABLET PO SCH (09:33)
[2020-05-06] MEDS: POTASSIUM CHLORIDE 10 MEQ TABLET.ER PO SCH ×2 (09:33→21:40)
[2020-05-06] MEDS: SODIUM BICARBONATE 650 MG TABLET PO SCH ×3 (09:33→15:55)
[2020-05-06] MEDS: PANTOT AC/MIN OIL/PET HY-PHL OINT 50 GM TOP SCH ×2 (09:34→17:27)
[2020-05-06] MEDS: DOCUSATE SODIUM 100 MG CAPSULE PO SCH ×2 (09:34→17:23)
[2020-05-06] MEDS: SODIUM CHLORIDE IV PRN ×3 (13:18)
[2020-05-06] MEDS: WATER FOR INJECTION STERILE IV PRN ×3 (13:18)
[2020-05-06] MEDS: [UNRECOGNIZED DRUG - OTHER] IV PRN ×3 (13:18)
--- NOTE | 2020-05-06 14:54 | PDOC PROGRESS REPORT ---
Subjective Progress Note for:: 05/06/20 Subjective:: Patient was seen laying in his bed at the time of examination. He claims to be doing well. No chest pain, SOB, n/v/d/c. He claims to be urinating without issues. Reason For Visit: HYPERGLYCEMIA SECONDARY TO DIABETES MELLITUS Physical Exam Vital Signs: Temp Pulse Resp BP Pulse Ox 98.0 F 90 18 125/72 100 05/06/20 11:45 05/06/20 11:45 05/06/20 11:45 05/06/20 11:45 05/06/20 11:45 Intake & Output 05/05/20 05/06/20 05/07/20 06:59 06:59 06:59 Intake Total 2231 1107 Output Total 400 Balance 1831 1107 Weight 87 kg 85.6 kg General appearance: PRESENT: no acute distress, well-developed, well-nourished Mouth exam: PRESENT: moist, neck supple Neck exam: PRESENT: JVD. ABSENT: tracheal deviation Respiratory exam: PRESENT: clear to auscultation gina. ABSENT: crackles, rales, rhonchi, wheezes Cardiovascular exam: PRESENT: +S1, +S2 GI/Abdominal exam: PRESENT: soft. ABSENT: distended, hernia, tenderness Extremities exam: PRESENT: +1 edema. ABSENT: pedal edema Neurological exam: PRESENT: alert, awake, oriented to person, oriented to place, oriented to time, oriented to situation Skin exam: PRESENT: dry, intact, warm Results Laboratory Results: 05/04/20 06:40 05/06/20 05:12 05/05/20 05/06/20 05/06/20 15:26 05:12 05:12 Sodium 141.1 143.7 Potassium 3.4 L 3.9 Chloride 123 H 121 H Carbon Dioxide 13 L 12 L Anion Gap 5 11 BUN 29 H 30 H Creatinine 2.20 H 2.37 H Est GFR ( Amer) 37 L 34 L Glucose 174 H 150 H Calcium 7.0 L* 7.4 L Phosphorus 2.7 Magnesium 1.8 Albumin 2.8 L PTH Intact 581.6 H 05/04/20 00:15 Clean Catch Midstream Urine Culture - Final Mixed Urogenital Anabel Impressions: Chest X-Ray 05/03/20 00:00 IMPRESSION: NO ACUTE FINDINGS. Renal Ultrasound 10/06/20 07:00 IMPRESSION: 1. Multicystic enlarged left kidney. 2. Multiple nonobstructing right renal calculi. 3. Bladder volume as above. Assessment & Plan - Diagnosis (1) Acute kidney injury superimposed on chronic kidney disease Is this a current diagnosis for this admission?: Yes Plan: Looks to have been from dehydration. Looks to possibly be at his baseline with his history of poorly controlled diabetes, a kidney that does not work and history of kidney stones. (2) Metabolic acidosis Plan: Looks to be related to kidney disease, less likely renal tubular acidosis with the history of hypokalemia. Will continue on bicarb drip and po bicarb.Switching him to 1/4NS with two amps of bicarb at 75mL an hour (3) Hypokalemia Is this a current diagnosis for this admission?: Yes Plan: May need to go up on his supplements with the bicarb that is being given. (4) Hypocalcemia Plan: will look to start him on calcium supplements. Corrected calcium is around 8.4. PTH was elevated, will look to start calcitriol 0.5mcg qd (5) Thrombocytopenia Is this a current diagnosis for this admission?: Yes (6) Renal osteodystrophy Plan: Will look to start calcitriol 0.5mcg qd
[2020-05-06] MEDS: CALCITRIOL 0.25 MCG CAPSULE PO SCH (15:55)
--- NOTE | 2020-05-06 17:37 | PDOC PROGRESS REPORT ---
Subjective Progress Note for:: 05/06/20 Subjective:: Patient was seen on morning rounds. He was found sitting up to the recliner, comfortably, on room air eating his breakfast. He has no complaints at this time. Asks if his "acid is better" and confirms that nephrology had seen him today w/ recommendations for continued IVF. Hopeful to d/c home soon. He denies fever, chills, chest pain, palpitations, dyspnea, abdominal pain, nausea vomiting and diarrhea. He reports good appetite. He has no new questions or concerns at this time. No concerns per nursing. Reason For Visit: HYPERGLYCEMIA SECONDARY TO DIABETES MELLITUS Physical Exam Vital Signs: Temp Pulse Resp BP Pulse Ox 98.0 F 95 18 125/72 100 05/06/20 11:45 05/06/20 14:00 05/06/20 11:45 05/06/20 11:45 05/06/20 11:45 Intake & Output 05/05/20 05/06/20 05/07/20 06:59 06:59 06:59 Intake Total 2231 1107 480 Output Total 400 Balance 1831 1107 480 Weight 87 kg 85.6 kg General appearance: PRESENT: no acute distress, cooperative, well-developed, well-nourished - overweight Head exam: PRESENT: atraumatic, normocephalic Eye exam: PRESENT: conjunctiva pink, EOMI, PERRLA. ABSENT: scleral icterus Mouth exam: PRESENT: moist, tongue midline Respiratory exam: PRESENT: clear to auscultation gina, symmetrical, unlabored. ABSENT: rales, rhonchi, wheezes Cardiovascular exam: PRESENT: RRR. ABSENT: diastolic murmur, rubs, systolic murmur Vascular exam: PRESENT: normal capillary refill Extremities exam: PRESENT: full ROM. ABSENT: calf tenderness, clubbing, pedal edema Musculoskeletal exam: PRESENT: ambulatory Neurological exam: PRESENT: alert, awake, oriented to person, oriented to place, oriented to time, oriented to situation, CN II-XII grossly intact. ABSENT: mot or sensory deficit Psychiatric exam: PRESENT: appropriate affect, normal mood. ABSENT: homicidal ideation, suicidal ideation Skin exam: PRESENT: dry, intact, warm. ABSENT: cyanosis, rash Results Laboratory Results: 05/04/20 06:40 05/06/20 05:12 05/06/20 05/06/20 05:12 05:12 Sodium 143.7 Potassium 3.9 Chloride 121 H Carbon Dioxide 12 L Anion Gap 11 BUN 30 H Creatinine 2.37 H Est GFR ( Amer) 34 L Glucose 150 H Calcium 7.4 L Phosphorus 2.7 Magnesium 1.8 Albumin 2.8 L PTH Intact 581.6 H 05/04/20 00:15 Clean Catch Midstream Urine Culture - Final Mixed Urogenital Patsy Impressions: Chest X-Ray 05/03/20 00:00 IMPRESSION: NO ACUTE FINDINGS. Renal Ultrasound 05/04/20 07:00 IMPRESSION: 1. Multicystic enlarged left kidney. 2. Multiple nonobstructing right renal calculi. 3. Bladder volume as above. Assessment and Plan - Diagnosis (1) Metabolic acidosis due to diabetes mellitus Is this a current diagnosis for this admission?: Yes Plan: Slightly improved . ABG revealed metabolic acidosis with pH 7.3, PCO2 20.8, HCO3 9.3. Bicarb w/ slight upward trend; 10-> 9-> 7-> 11-> 13-> 12 Nephrology has been consulted. Appreciate their evaluation and recommendations. Continue bicarb drip; dose adjustments made by Nephrology today. Will continue bicarb 1300 mg TID with meals. Trend chemistries. (2) Acute kidney injury superimposed on chronic kidney disease Is this a current diagnosis for this admission?: Yes Plan: Improved; Cr 2.72-> 2.84-> 2.40-> 2.20-> 2.37. Likely approaching baseline. Renal ultrasound revealed multiple nonobstructing right renal calculi. Multicystic enlarged left kidney. Nephrology is consulted. Appreciate their evaluation and recommendations. We will continue gentle IV fluids. Nephrology has started low dose po Furosemide. Avoid nephrotoxic medication as able. Trend chemistries. (3) Hyperglycemia due to type 2 diabetes mellitus Qualifiers: Diabetes mellitus skilled nursing insulin use: with skilled nursing use Qualified Code(s): E11.65 - Type 2 diabetes mellitus with hyperglycemia; Z79.4 - correction (current) use of insulin Is this a current diagnosis for this admission?: Yes Plan: Has been without medications for several months. A1c 9.2%. Patient is placed on a consistent carb diet. Have started insulin 70/30; 12 units every morning and 6 units each evening. Bgl appears well controlled on current dosing. Accu-Cheks before meals and at bedtime with Humalog for sliding scale coverage. Hypoglycemia protocol in place. Registered dietitian and staff development educator consulted. (4) Gastroesophageal reflux disease Qualifiers: Esophagitis presence: without esophagitis Qualified Code(s): K21.9 - Gastro-esophageal reflux disease without esophagitis Is this a current diagnosis for this admission?: Yes Plan: Continue Protonix 40 mg daily. (5) Hypokalemia Is this a current diagnosis for this admission?: Yes Plan: Replete. Continue potassium 40 meq twice daily. Nephrology is now consulted. (6) Thrombocytopenia Is this a current diagnosis for this admission?: Yes Plan: Platelet count is only 130 at admission; decreased to 116 with IV fluid resuscitation. He does not report any history of abnormal CBCs; though patient is a poor historian with noncompliance due to financial/insurance issues. With Follow-up CBC. (7) Cough Is this a current diagnosis for this admission?: Yes Plan: Resolved. The patient has a nonproductive intermittent cough. Lungs are clear. He is afebrile. At this point we will monitor and treat conservatively. No indications for antibiotics at this time. 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 Previously reported that his left hand has been weak for some time. Exam was benign. May require outpatient Nerve conduction studies. (9) Abnormal finding on urinalysis Is this a current diagnosis for this admission?: Yes Plan: The patient had glucosuria and proteinuria which are not surprising but he did have an elevated leukocyte esterase and 26 white blood cells per high-power field. He is afebrile and is not exhibiting any dysuria. Urine culture shows nml patsy Will hold on antibiotics at this time; low threshold if symptoms change. (10) Leukopenia Qualifiers: Leukopenia type: neutropenia Neutropenia type: unspecified Qualified Code(s): D70.9 - Neutropenia, unspecified Is this a current diagnosis for this admission?: Yes Plan: Reolved. (11) Hypocalcemia Is this a current diagnosis for this admission?: Yes Plan: Corrected Ca 8.4 PTH elevated Placed on oral supplementation and calcitrol by Neprhology. Follow yo chemistry. - Time Time Spent with patient: 15-24 minutes Medications reviewed and adjusted accordingly: Yes Anticipated Discharge Disposition: Home, Self Care Anticipated Discharge Timeframe: undetermined; pending nephrology clearance
[2020-05-06] MEDS: ATORVASTATIN CALCIUM 40 MG TABLET PO SCH (21:40)
[2020-05-07] MEDS: PANTOPRAZOLE SODIUM 40 MG TABLET.DR PO SCH (05:09)
[2020-05-07] MEDS: HEPARIN SOD (PORCINE) 5,000 UNIT/ML 1 ML VIAL SUBCUT SCH ×3 (05:09→21:24)
[2020-05-07 07:18] LABS: ALBUMIN 3.4 g/dL (3.5-5.0); ANION GAP 11 (5-19); BLOOD UREA NITROGEN 31 mg/dL (7-20); CALCIUM 8.1 mg/dL (8.4-10.2); CARBON DIOXIDE 16 mmol/L (22-30); CHLORIDE 115 mmol/L (98-107); GLUCOSE 200 mg/dL (75-110); POTASSIUM 4.3 mmol/L (3.6-5.0)
[2020-05-07] MEDS: SODIUM BICARBONATE 650 MG TABLET PO SCH ×3 (08:12→17:13)
[2020-05-07] MEDS: HUM INSULIN NPH/REG INSULIN HM 100 UNIT/1 ML 3 ML SUBCUT SCH ×2 (08:13→17:14)
[2020-05-07] MEDS: INSULIN LISPRO 100 UNIT/ML 3 ML VIAL SUBCUT SCH ×4 (08:13→22:44)
[2020-05-07] MEDS: DOCUSATE SODIUM 100 MG CAPSULE PO SCH ×2 (09:39→17:13)
[2020-05-07] MEDS: LISINOPRIL 5 MG TABLET PO SCH (09:39)
[2020-05-07] MEDS: FUROSEMIDE 20 MG TABLET PO SCH (09:39)
[2020-05-07] MEDS: CALCIUM CARBONATE 600 MG/VITAMIN D3 400 UNIT TABLET PO SCH ×2 (09:40→17:13)
[2020-05-07] MEDS: PANTOT AC/MIN OIL/PET HY-PHL OINT 50 GM TOP SCH ×2 (09:40→17:14)
[2020-05-07] MEDS: CALCITRIOL 0.25 MCG CAPSULE PO SCH (09:40)
[2020-05-07] MEDS: POTASSIUM CHLORIDE 10 MEQ TABLET.ER PO SCH ×2 (09:40→21:23)
--- NOTE | 2020-05-07 12:35 | PDOC PROGRESS REPORT ---
Subjective Progress Note for:: 05/07/20 Reason For Visit: Patient seen today in the hospital. He feels great. Good appetite. No history nausea vomiting, chest pain or shortness of breath. Labs and medications reviewed that his renal functions are remaining stable with a EGFR approximately around 35 cc/min. Physical Exam Vital Signs: Temp Pulse Resp BP Pulse Ox 98.2 F 87 16 117/79 99 05/07/20 10:58 05/07/20 10:58 05/07/20 10:58 05/07/20 10:58 05/07/20 10:58 Intake & Output 05/06/20 05/07/20 05/08/20 06:59 06:59 06:59 Intake Total 1107 980 675 Balance 1107 980 675 Weight 85.6 kg 85.1 kg General appearance: PRESENT: no acute distress Respiratory exam: PRESENT: clear to auscultation gina, decreased breath sounds. ABSENT: crackles Cardiovascular exam: PRESENT: +S1, +S2 GI/Abdominal exam: PRESENT: normal bowel sounds, soft. ABSENT: distended, hernia, organomegaly, tenderness Extremities exam: ABSENT: pedal edema Neurological exam: PRESENT: alert, awake, oriented to person, oriented to place Psychiatric exam: PRESENT: appropriate affect Results Laboratory Results: 05/04/20 06:40 05/07/20 05:46 05/07/20 05:46 Sodium 142.2 Potassium 4.3 Chloride 115 H Carbon Dioxide 16 L Anion Gap 11 BUN 31 H Creatinine 2.43 H Est GFR ( Amer) 33 L Glucose 200 H Calcium 8.1 L Albumin 3.4 L 05/04/20 00:15 Clean Catch Midstream Urine Culture - Final Mixed Urogenital Anabel Impressions: Chest X-Ray 05/03/20 00:00 IMPRESSION: NO ACUTE FINDINGS. Renal Ultrasound 05/04/20 07:00 IMPRESSION: 1. Multicystic enlarged left kidney. 2. Multiple nonobstructing right renal calculi. 3. Bladder volume as above. Assessment & Plan - Diagnosis (1) Acute kidney injury superimposed on chronic kidney disease Is this a current diagnosis for this admission?: Yes Plan: It looks like patient obviously has got diabetic kidney disease and he is at baseline. Ultrasound shows multicystic kidney disease with nonobstructive renal calculi. I would continue on current management guidelines. No indications for renal replacements. Advised tight blood sugar control. He needs to follow-up with nephrology as an outpatient. (2) Hyperglycemia due to type 2 diabetes mellitus Qualifiers: Diabetes mellitus penitentiary insulin use: with penitentiary use Qualified Code(s): E11.65 - Type 2 diabetes mellitus with hyperglycemia; Z79.4 - longterm (current) use of insulin Is this a current diagnosis for this admission?: Yes Plan: Advised the need for tight blood sugar control. Unfortunately lacks insurance and is following with [facility]. (3) Metabolic acidosis Plan: Continue on IV bicarb replacement besides p.o. and when he has reached near normal levels of CO2 he can be discharged on p.o. bicarb replacements and follow-up with labs. (4) Renal osteodystrophy Plan: Continue current medications. Follow-up with labs. (5) CKD stage G3b/A2, GFR 30-44 and albumin creatinine ratio 30-299 mg/g Plan: Patient is at baseline. Needs outpatient monitoring. Advised tight blood s ugar/blood pressure control.
--- NOTE | 2020-05-07 14:14 | PDOC PROGRESS REPORT ---
Subjective Progress Note for:: 05/07/20 Subjective:: Patient was seen on morning rounds. He was found resting in bed, comfortably, on room air. He has no complaints at this time. Tells me that shoe folder was by this dalia avila, recommended that he follow up in the office after he is discharged. Hopeful to d/c home soon. He denies fever, chills, chest pain, palpitations, dyspnea, abdominal pain, nausea vomiting and diarrhea. He reports good appetite. He has no new questions or concerns at this time. No concerns per nursing. Reason For Visit: HYPERGLYCEMIA SECONDARY TO DIABETES MELLITUS Physical Exam Vital Signs: Temp Pulse Resp BP Pulse Ox 98.2 F 87 16 117/79 99 05/07/20 10:58 05/07/20 10:58 05/07/20 10:58 05/07/20 10:58 05/07/20 10:58 Intake & Output 05/06/20 05/07/20 05/08/20 06:59 06:59 06:59 Intake Total 1107 980 675 Balance 1107 980 675 Weight 85.6 kg 85.1 kg General appearance: PRESENT: no acute distress, cooperative, obese, well-develo ped, well-nourished Head exam: PRESENT: atraumatic, normocephalic Eye exam: PRESENT: conjunctiva pink, EOMI, PERRLA. ABSENT: scleral icterus Mouth exam: PRESENT: moist, tongue midline Respiratory exam: PRESENT: clear to auscultation gina, symmetrical, unlabored, other - room air. ABSENT: rales, rhonchi, wheezes Cardiovascular exam: PRESENT: RRR. ABSENT: diastolic murmur, rubs, systolic murmur Vascular exam: PRESENT: normal capillary refill Extremities exam: PRESENT: full ROM. ABSENT: calf tenderness, clubbing, pedal edema Musculoskeletal exam: PRESENT: ambulatory Neurological exam: PRESENT: alert, awake, oriented to person, oriented to place, oriented to time, oriented to situation, CN II-XII grossly intact. ABSENT: motor sensory deficit Psychiatric exam: PRESENT: appropriate affect, normal mood. ABSENT: homicidal ideation, suicidal ideation Skin exam: PRESENT: dry, intact, warm. ABSENT: cyanosis, rash Results Laboratory Results: 05/04/20 06:40 05/07/20 05:46 05/07/20 05:46 Sodium 142.2 Potassium 4.3 Chloride 115 H Carbon Dioxide 16 L Anion Gap 11 BUN 31 H Creatinine 2.43 H Est GFR ( Amer) 33 L Glucose 200 H Calcium 8.1 L Albumin 3.4 L 05/04/20 00:15 Clean Catch Midstream Urine Culture - Final Mixed Urogenital Patsy Impressions: Chest X-Ray 05/03/20 00:00 IMPRESSION: NO ACUTE FINDINGS. Renal Ultrasound 05/04/20 07:00 IMPRESSION: 1. Multicystic enlarged left kidney. 2. Multiple nonobstructing right renal calculi. 3. Bladder volume as above. Assessment and Plan - Diagnosis (1) Metabolic acidosis due to diabetes mellitus Is this a current diagnosis for this admission?: Yes Plan: Improved . ABG revealed metabolic acidosis with pH 7.3, PCO2 20.8, HCO3 9.3. Bicarb w/ slight upward trend; 10-> 9-> 7-> 11-> 13-> 12-> 16 Nephrology has been consulted. Appreciate their evaluation and recommendations. Continue bicarb drip; dose adjustments made by Nephrology today. Will continue bicarb 1300 mg TID with meals. Per nephrology, patient can be discharged when bicarb "approaches normal" on oral bicarb and outpatient nephrology follow-up. Trend chemistries. (2) Acute kidney injury superimposed on chronic kidney disease Is this a current diagnosis for this admission?: Yes Plan: Resolved; likely at baseline. Cr 2.72-> 2.84-> 2.40-> 2.20-> 2.37. Likely approaching baseline. Renal ultrasound revealed multiple nonobstructing right renal calculi. Multicystic enlarged left kidney. Nephrology is consulted. Appreciate their evaluation and recommendations. We will continue gentle IV fluids. Nephrology has started low dose po Furosemide. Avoid nephrotoxic medication as able. Trend chemistries. (3) Hyperglycemia due to type 2 diabetes mellitus Qualifiers: Diabetes mellitus halfway insulin use: with oil heaterman use Qualified Code(s): E11.65 - Type 2 diabetes mellitus with hyperglycemia; Z79.4 - roasterman (current) use of insulin Is this a current diagnosis for this admission?: Yes Plan: Has been without medications for several months. A1c 9.2%. Patient is placed on a consistent carb diet. Have started insulin 70/30; 12 units every morning and 6 units each evening. B gl appears well controlled on current dosing. Accu-Cheks before meals and at bedtime with Humalog for sliding scale coverage. Hypoglycemia protocol in place. Registered dietitian and visual educator consulted. (4) Gastroesophageal reflux disease Qualifiers: Esophagitis presence: without esophagitis Qualified Code(s): K21.9 - Gastro-esophageal reflux disease without esophagitis Is this a current diagnosis for this admission?: Yes Plan: Continue Protonix 40 mg daily. (5) Hypokalemia Is this a current diagnosis for this admission?: Yes Plan: Replete. Continue potassium 40 meq twice daily. Nephrology is now consulted. (6) Thrombocytopenia Is this a current diagnosis for this admission?: Yes Plan: Platelet count is only 130 at admission; decreased to 116 with IV fluid resuscitation. He does not report any history of abnormal CBCs; though patient is a poor historian with noncompliance due to financial/insurance issues. With Follow-up CBC. (7) Cough Is this a current diagnosis for this admission?: Yes Plan: Resolved. The patient has a nonproductive intermittent cough. Lungs are clear. He is afebrile. At this point we will monitor and treat conservatively. No indications for antibiotics at this time. 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 Previously reported that his left hand has been weak for some time. Exam was benign. May require outpatient Nerve conduction studies. (9) Abnormal finding on urinalysis Is this a current diagnosis for this admission?: Yes Plan: The patient had glucosuria and proteinuria which are not surprising but he did have an elevated leukocyte esterase and 26 white blood cells per high-power field. He is afebrile and is not exhibiting any dysuria. Urine culture shows nml patsy Will hold on antibiotics at this time; low threshold if symptoms change. (10) Leukopenia Qualifiers: Leukopenia type: neutropenia Neutropenia type: unspecified Qualified Code(s): D70.9 - Neutropenia, unspecified Is this a current diagnosis for this admission?: Yes Plan: Reolved. (11) Hypocalcemia Is this a current diagnosis for this admission?: Yes Plan: Corrected Ca 8.6 PTH elevated Placed on oral supplementation and calcitrol by Neprhology. Follow yo chemistry. - Time Time Spent with patient: 25-34 minutes Medications reviewed and adjusted accordingly: Yes Anticipated Discharge Disposition: Home, Self Care Anticipated Discharge Timeframe: within 24 hours
[2020-05-07] MEDS: GUAIFENESIN/D-METHORPHAN (200-20 MG) SYRUP 10 ML PO PRN (17:20)
[2020-05-07] MEDS: ATORVASTATIN CALCIUM 40 MG TABLET PO SCH (21:23)
[2020-05-07] MEDS: WATER FOR INJECTION STERILE IV PRN ×3 (22:27)
[2020-05-07] MEDS: [UNRECOGNIZED DRUG - OTHER] IV PRN ×3 (22:27)
[2020-05-07] MEDS: SODIUM CHLORIDE IV PRN ×3 (22:27)
[2020-05-08] MEDS: PANTOPRAZOLE SODIUM 40 MG TABLET.DR PO SCH (05:30)
[2020-05-08] MEDS: HEPARIN SOD (PORCINE) 5,000 UNIT/ML 1 ML VIAL SUBCUT SCH ×2 (05:49→13:26)
[2020-05-08 07:27] LABS: ANION GAP 9 (5-19); BLOOD UREA NITROGEN 36 mg/dL (7-20); CALCIUM 7.7 mg/dL (8.4-10.2); CARBON DIOXIDE 17 mmol/L (22-30); CHLORIDE 115 mmol/L (98-107); GLUCOSE 245 mg/dL (75-110); POTASSIUM 3.8 mmol/L (3.6-5.0)
[2020-05-08] MEDS: HUM INSULIN NPH/REG INSULIN HM 100 UNIT/1 ML 3 ML SUBCUT SCH ×2 (07:38→16:57)
[2020-05-08] MEDS: SODIUM BICARBONATE 650 MG TABLET PO SCH ×3 (07:39→16:57)
[2020-05-08] MEDS: INSULIN LISPRO 100 UNIT/ML 3 ML VIAL SUBCUT SCH ×3 (07:39→16:57)
[2020-05-08] MEDS: FUROSEMIDE 20 MG TABLET PO SCH (10:02)
[2020-05-08] MEDS: CALCITRIOL 0.25 MCG CAPSULE PO SCH (10:02)
[2020-05-08] MEDS: DOCUSATE SODIUM 100 MG CAPSULE PO SCH (10:02)
[2020-05-08] MEDS: CALCIUM CARBONATE 600 MG/VITAMIN D3 400 UNIT TABLET PO SCH (10:02)
[2020-05-08] MEDS: POTASSIUM CHLORIDE 10 MEQ TABLET.ER PO SCH (10:02)
[2020-05-08] MEDS: LISINOPRIL 5 MG TABLET PO SCH (10:02)
[2020-05-08] MEDS: PANTOT AC/MIN OIL/PET HY-PHL OINT 50 GM TOP SCH (10:03)
[2020-05-08 11:21] VITALS: BP 130/76
[2020-05-08 14:48] LABS: ANION GAP 9 (5-19); BLOOD UREA NITROGEN 37 mg/dL (7-20); CALCIUM 8.4 mg/dL (8.4-10.2); CARBON DIOXIDE 19 mmol/L (22-30); CHLORIDE 113 mmol/L (98-107); GLUCOSE 243 mg/dL (75-110); POTASSIUM 4.1 mmol/L (3.6-5.0)
--- NOTE | 2020-05-09 18:59 | PDOC DISCHARGE SUMMARY ---
Impression - Admit/DC Date/PCP Admission Date/Primary Care Provider: 05/03/20 15:53 [facility] Discharge Date: 05/08/20 - Discharge Diagnosis (1) Metabolic acidosis due to diabetes mellitus Is this a current diagnosis for this admission?: Yes (2) Acute kidney injury superimposed on chronic kidney disease Is this a current diagnosis for this admission?: Yes (3) Hyperglycemia due to type 2 diabetes mellitus Is this a current diagnosis for this admission?: Yes (4) Gastroesophageal reflux disease Is this a current diagnosis for this admission?: Yes (5) Hypokalemia Is this a current diagnosis for this admission?: Yes (6) Thrombocytopenia Is this a current diagnosis for this admission?: Yes (7) Cough Is this a current diagnosis for this admission?: Yes (8) Monoparesis of upper extremity affecting left nondominant side Is this a current diagnosis for this admission?: Yes (9) Abnormal finding on urinalysis Is this a current diagnosis for this admission?: Yes (10) Leukopenia Is this a current diagnosis for this admission?: Yes (11) Hypocalcemia Is this a current diagnosis for this admission?: Yes - Additional Information Resuscitation Status: Full Code Discharge Diet: Diabetic Discharge Activity: Activity As Tolerated, Balance Activity w/Rest Referrals: [facility] [Primary Care Provider] - (Follow up within 1 week.) Thanh HUMPHREYS MD [ACTIVE STAFF] - (Follow up in 7-10 days.) Prescriptions: Blood-Glucose Meter [Blood Glucose Meter] 1 unit MC DAILY PRN #1 unit PRN Reason: Calcium Carbonate/Vitamin D3 [Caltrate 600-Vit D3 400 Tablet] 1 tab PO BID #60 tablet Hum Insulin NPH/Reg Insulin Hm [Insulin Inj 70-30 (100 Unit/1 ml) 3 ml Vial] 1 unit SUBCUT ASDIR PRN #1 vial PRN Reason: Hum Insulin NPH/Reg Insulin Hm [Insulin 70-30 (NPH/Reg) 100 unit/mL] 12 unit SUBCUT ACBRKFST #1 vial Hum Insulin NPH/Reg Insulin Hm [Insulin 70-30 (NPH/Reg) 100 unit/mL] 6 unit SUBCUT ACSUPPER #1 vial Syringe and Needle,Insulin,1Ml [Insulin Syringe] 1 each MC BID #60 disp.syrin Furosemide [Lasix 20 mg Tablet] 20 mg PO DAILY #30 tablet Atorvastatin Calcium [Lipitor 40 mg Tablet] 40 mg PO QHS #30 tablet Potassium Chloride 40 meq PO Q12 #120 tablet.er Lisinopril [Prinivil 5 mg Tablet] 2.5 mg PO DAILY #30 tablet Calcitriol [Rocaltrol 0.25 mcg Capsule] 0.5 mcg PO DAILY #60 capsule Sodium Bicarbonate [Sodium Bicarbonate 650 mg Tablet] 1,300 mg PO AC #120 tablet Home Medications: Acetaminophen [Tylenol 325 mg Tablet] 650 mg PO Q4HP PRN tablet 05/08/20 Atorvastatin Calcium [Lipitor 40 mg Tablet] 40 mg PO QHS #30 tablet 05/08/20 Blood-Glucose Meter [Blood Glucose Meter] 1 unit MC DAILY PRN #1 unit 05/08/20 Calcitriol [Rocaltrol 0.25 mcg Capsule] 0.5 mcg PO DAILY #60 capsule 05/08/20 Calcium Carbonate/Vitamin D3 [Caltrate 600-Vit D3 400 Tablet] 1 tab PO BID #60 tablet 05/08/20 Docusate Sodium [Colace 100 mg Capsule] 100 mg PO BID capsule 05/08/20 Furosemide [Lasix 20 mg Tablet] 20 mg PO DAILY #30 tablet 05/08/20 Hum Insulin NPH/Reg Insulin Hm [Insulin 70-30 (NPH/Reg) 100 unit/mL] 6 unit SUBCUT ACSUPPER #1 vial 05/08/20 Hum Insulin NPH/Reg Insulin Hm [Insulin 70-30 (NPH/Reg) 100 unit/mL] 12 unit SUBCUT ACBRKFST #1 vial 05/08/20 Hum Insulin NPH/Reg Insulin Hm [Insulin Inj 70-30 (100 Unit/1 ml) 3 ml Vial] 1 unit SUBCUT ASDIR PRN #1 vial 05/08/20 Lisinopril [Prinivil 5 mg Tablet] 2.5 mg PO DAILY #30 tablet 05/08/20 Potassium Chloride 40 meq PO Q12 #120 tablet.er 05/08/20 Sodium Bicarbonate [Sodium Bicarbonate 650 mg Tablet] 1,300 mg PO AC #120 tablet 05/08/20 Syringe and Needle,Insulin,1Ml [Insulin Syringe] 1 each MC BID #60 disp.syrin 05/08/20 History of Present Illiness History of Present Illness: Per H&P by Dr. Caldwell: RADHA FLORES is a 59 year old male with a past medical history of diabetes mellitus type 2 for over 20 years. He did have a hemoglobin A1c level tested in February and his provider said it was "good ". Unfortunately they moved from [place] in June and he is reestablishing ca re locally. He has been out of all of his medicines for 2 months. He states that he was on potassium and sodium bicarbonate tablets in the past. For his diabetes he had been on Lantus in the past. He had a trial of Januvia. He believes it was 25 mg daily and this was discontinued. The last prescription was for Trulicity given once a week but he ran out of that medication as well. He has a history of kidney stones and reports that he has "one functioning kidney ". He has a history of multiple kidney stones and has undergone lithotripsy. He has a nonproductive cough and denies any fever or chills. He denies known exposure to anyone under investigation or positive for COVID 19. He does state that over the last several weeks his sugars have slowly gotten better. He was initially 600 and it has worked its way down to the 460 tested on admission today. With IV fluids alone his glucose has decreased to 274. He is not sure why he was on the sodium bicarbonate tablets. He believes that it was for stomach acid/reflux. Because of his long history of kidney stones it may have been more related to chronic kidney disease but he is unable to provide full details. Venous blood gas revealed a pH of 7.07 with a PCO2 of 39.4 and a bicarb of 11.2. White blood cell count was slightly low at 3.9 with a hemoglobin of 15.5 and a platelet count of 130. Potassium was 3.5 with a CO2 of 10. BUN was 34 with a creatinine of 2.72 and as noted above his initial glucose was 460. Calcium was 7.7 with a normal albumin. EKG showed normal sinus rhythm with a rate of 88 bpm and no abnormalities. With IV fluids alone (the patient was not given any insulin in the emergency department) his glucose has come down to 274. Urinalysis was negative for ketones but the patient did have glucosu sara, proteinuria as well as positive leukocyte esterase and 26 white blood cells per high-power field. Urine culture has been added to the order set. Hospital Course Hospital Course: (1) Metabolic acidosis due to diabetes mellitus Improved; chronic. ABG revealed metabolic acidosis with pH 7.3, PCO2 20.8, HCO3 9.3. Bicarb w/ slight upward trend; 10-> 9-> 7-> 11-> 13-> 12-> 16-> 19 Nephrology was consulted. Appreciate their evaluation and recommendations. Treated with bicarb drip; per Dr. Humphreys' note, may discharge once bicarb "approaches normal" w/ continued oral replacement. Continue bicarb 1300 mg TID with meals; Rx provided at discharge. Per nephrology, patient can be discharged when bicarb "approaches normal" on oral bicarb and outpatient nephrology follow-up. (2) Acute kidney injury superimposed on chronic kidney disease Resolved; likely at baseline. Cr 2.72-> 2.84-> 2.40-> 2.20-> 2.37-> 2.05. Likely approaching baseline. Renal ultrasound revealed multiple nonobstructing right renal calculi. Multicystic enlarged left kidney. Nephrology is consulted. Appreciate their evaluation and recommendations. Nephrology has started low dose po Furosemide. Avoid nephrotoxic medication as able. (3) Hyperglycemia due to type 2 diabetes mellitus Has been without medications for several months. A1c 9.2%. Patient is placed on a consistent carb diet. Have started insulin 70/30; 12 units every morning and 6 units each evening. Bgl appears well controlled on current dosing. Registered dietitian and nurse informatics educator consulted. Outpatient PCP follow up. (4) Gastroesophageal reflux disease Continue Protonix 40 mg daily. (5) Hypokalemia Replete. Continue potassium 40 meq twice daily. Nephrology consulted; outpatient follow up. (6) Thrombocytopenia Platelet count is only 130 at admission; decreased to 116 with IV fluid resuscitation. He does not report any history of abnormal CBCs; though patient is a poor historian with noncompliance due to financial/insurance issues. Routine outpatient monitoring. (7) Cough Resolved. The patient has a nonproductive intermittent cough. Lungs are clear. He is afebrile. At this point we will monitor and treat conservatively. No indications for antibiotics at this time. (8) Monoparesis of upper extremity affecting left nondominant side Patient denies complaints today. Previously reported that his left hand has been weak for some time. Exam was benign. Outpatient PCP follow up. May benefit from nerve conduction studies if symptoms worsen/persist. (9) Abnormal finding on urinalysis The patient had glucosuria and proteinuria which are not surprising but he did have an elevated leukocyte esterase and 26 white blood cells per high-power field. He is afebrile and is not exhibiting any dysuria. Urine culture shows nml patsy Did not require antibiotic treatment. (10) Leukopenia Resolved. (11) Hypocalcemia Resolved. PTH elevated Placed on oral supplementation and calcitrol by Neprhology. Prescriptions provided at discharge. Physical Exam Vital Signs: Temp Pulse Resp BP Pulse Ox 98.3 F 91 16 130/76 H 100 05/08/20 16:21 05/08/20 16:21 05/08/20 16:21 05/08/20 11:19 05/08/20 16:21 Intake & Output 05/08/20 05/09/20 05/10/20 06:59 06:59 06:59 Intake Total 1095 780 Balance 1095 780 Weight 85.5 kg General appearance: PRESENT: no acute distress, cooperative, obese, well- developed, well-nourished Head exam: PRESENT: atraumatic, normocephalic Eye exam: PRESENT: conjunctiva pink, EOMI, PERRLA. ABSENT: scleral icterus Mouth exam: PRESENT: moist, tongue midline Respiratory exam: PRESENT: clear to auscultation gina, symmetrical, unlabored. ABSENT: rales, rhonchi, wheezes Cardiovascular exam: PRESENT: RRR. ABSENT: diastolic murmur, rubs, systolic murmur Vascular exam: PRESENT: normal capillary refill Extremities exam: PRESENT: full ROM. ABSENT: calf tenderness, clubbing, pedal edema Musculoskeletal exam: PRESENT: ambulatory Neurological exam: PRESENT: alert, awake, oriented to person, oriented to place, oriented to time, oriented to situation, CN II-XII grossly intact. ABSENT: motor sensory deficit Psychiatric exam: PRESENT: appropriate affect, normal mood. ABSENT: homicidal ideation, suicidal ideation Skin exam: PRESENT: dry, intact, warm. ABSENT: cyanosis, rash Results Laboratory Results: WBC 4.5 10^3/uL (4.0-10.5) 05/04/20 06:40 RBC 5.27 10^6/uL (4.35-5.55) 05/04/20 06:40 Hgb 15.5 g/dL (13.5-17.0) 05/04/20 06:40 Hct 46.6 % (37.9-51.0) 05/04/20 06:40 MCV 88 fl (80-97) 05/04/20 06:40 MCH 29.4 pg (27.0-33.4) 05/04/20 06:40 MCHC 33.2 g/dL (32.0-36.0) 05/04/20 06:40 RDW 16.5 % (11.5-14.0) H 05/04/20 06:40 Plt Count 116 10^3/uL (150-450) L 05/04/20 06:40 Lymph % (Auto) 23.6 % (13-45) 05/04/20 06:40 [place] % (Auto) 7.5 % (3-13) 05/04/20 06:40 Eos % (Auto) 1.7 % (0-6) 05/04/20 06:40 Baso % (Auto) 0.3 % (0-2) 05/04/20 06:40 Absolute Neuts (auto) 3.0 10^3/uL (1.7-8.2) 05/04/20 06:40 Absolute Lymphs (auto) 1.1 10^3/uL (0.5-4.7) 05/04/20 06:40 Absolute Monos (auto) 0.3 10^3/uL (0.1-1.4) 05/04/20 06:40 Absolute Eos (auto) 0.1 10^3/uL (0.0-0.6) 05/04/20 06:40 Absolute Basos (auto) 0.0 10^3/uL (0.0-0.2) 05/04/20 06:40 Seg Neutrophils % 66.9 % (42-78) 05/04/20 06:40 Carbonic Acid 0.87 mmol/L (1.05-1.35) L 05/04/20 10:47 HCO3/H2CO3 Ratio 10:1 05/04/20 10:47 ABG pH 7.13 (7.35-7.45) L* 05/04/20 10:47 ABG pCO2 28.8 mmHg (35-45) L 05/04/20 10:47 ABG pO2 100.7 mmHg (80-100) H 05/04/20 10:47 ABG HCO3 9.3 mmol/L (20-24) L 05/04/20 10:47 ABG Total CO2 10.2 mmol/L (23-27) L 05/04/20 10:47 ABG O2 Saturation 95.6 % (94-98) 05/04/20 10:47 ABG Base Excess -18.6 mmol/L 05/04/20 10:47 VBG pH 7.07 (7.30-7.42) L* 05/03/20 13:42 VBG pCO2 39.4 mmHg (35-63) 05/03/20 13:42 VBG HCO3 11.2 mmol/L (20-32) L 05/03/20 13:42 VBG Base Excess -18.3 mmol/L 05/03/20 13:42 FiO2 ROOM TEMP 05/04/20 10:47 Sodium 141.2 mmol/L (137-145) 05/08/20 14:10 Potassium 4.1 mmol/L (3.6-5.0) 05/08/20 14:10 Chloride 113 mmol/L (98-107) H 05/08/20 14:10 Carbon Dioxide 19 mmol/L (22-30) L 05/08/20 14:10 Anion Gap 9 (5-19) 05/08/20 14:10 BUN 37 mg/dL (7-20) H 05/08/20 14:10 Creatinine 2.05 mg/dL (0.52-1.25) H 05/08/20 14:10 Est GFR ( Amer) 41 (>60) L 05/08/20 14:10 Est GFR (MDRD) Non-Af 34 (>60) L 05/08/20 14:10 Glucose 243 mg/dL (75-110) H 05/08/20 14:10 POC Glucose 197 mg/dL (70-110) H 05/08/20 11:15 Hemoglobin A1c % 9.2 % (4.7-6.0) H 05/04/20 06:40 Calcium 8.4 mg/dL (8.4-10.2) 05/08/20 14:10 Phosphorus 2.7 mg/dL (2.5-4.5) 05/06/20 05:12 Magnesium 1.8 mg/dL (1.6-2.3) 05/06/20 05:12 Total Bilirubin 0.6 mg/dL (0.2-1.3) 05/03/20 13:38 Direct Bilirubin 0.3 mg/dL (0.0-0.4) 05/03/20 13:38 Neonat Total Bilirubin Not Reportable 05/03/20 13:38 Neonat Direct Bilirubin Not Reportable 05/03/20 13:38 Neonat Indirect Bili Not Reportable 05/03/20 13:38 AST 20 U/L (17-59) 05/03/20 13:38 ALT 27 U/L (<50) 05/03/20 13:38 Alkaline Phosphatase 192 U/L (38-126) H 05/03/20 13:38 Total Protein 6.6 g/dL (6.3-8.2) 05/03/20 13:38 Albumin 3.4 g/dL (3.5-5.0) L 05/07/20 05:46 Triglycerides 147 mg/dL (<150) 05/04/20 06:40 Cholesterol 140.47 mg/dL (0-200) 05/04/20 06:40 LDL Cholesterol Direct 75 mg/dL (<100) 05/04/20 06:40 VLDL Cholesterol 29.0 mg/dL (10-31) 05/04/20 06:40 HDL Cholesterol 25 mg/dL (>40) L 05/04/20 06:40 PTH Intact 581.6 pg/mL (10.0-65.0) H 05/06/20 05:12 Urine Color STRAW 05/03/20 13:38 Urine Appearance CLEAR 05/03/20 13:38 Urine pH 7.0 (5.0-9.0) 05/03/20 13:38 Ur Specific [place] 1.008 05/03/20 13:38 Urine Protein 100 mg/dL (NEGATIVE) H 05/03/20 13:38 Urine Glucose (UA) >=500 mg/dL (NEGATIVE) H 05/03/20 13:38 Urine Ketones NEGATIVE mg/dL (NEGATIVE) 05/03/20 13:38 Urine Blood SMALL (NEGATIVE) H 05/03/20 13:38 Urine Nitrite NEGATIVE (NEGATIVE) 05/03/20 13:38 Urine Bilirubin NEGATIVE (NEGATIVE) 05/03/20 13:38 Urine Urobilinogen NEGATIVE mg/dL (<2.0) 05/03/20 13:38 Ur Leukocyte Esterase MODERATE (NEGATIVE) H 05/03/20 13:38 Urine WBC (Auto) 26 /HPF 05/03/20 13:38 Urine RBC (Auto) 1 /HPF 05/03/20 13:38 Urine Bacteria (Auto) TRACE /HPF 05/03/20 13:38 Squamous Epi Cells Auto <1 /HPF 05/03/20 13:38 Urine Ascorbic Acid NEGATIVE (NEGATIVE) 05/03/20 13:38 Impressions: Chest X-Ray 05/03/20 00:00 IMPRESSION: NO ACUTE FINDINGS. Renal Ultrasound 05/04/20 07:00 IMPRESSION: 1. Multicystic enlarged left kidney. 2. Multiple nonobstructing right renal calculi. 3. Bladder volume as above. Plan Plan of Treatment: Patient is discharged home, in stable condition. He is advised to follow-up with his primary care provider within 1 week. Follow-up with Dr. Humphreys within 7 to 10 days. Eat a consistent carb diet. Take medications as prescribed. Return to the emergency department, as needed, for concerning symptoms. Time Spent: Greater than 30 Minutes Stroke Is this a Stroke Patient?: No Acute Heart Failure Is this a Heart Failure Patient?: No
== END 2020-05-08 17:01 | disposition home or self-care (01) | DRG 638 ==
LOC: ER 12:32 → EH 15:53 → 3W 17:54 → 4S 05-07 17:41
PROVIDERS: ADMIT Hospitalist; ATTEND Registered Nurse
DX: E11.10 Type 2 diabetes mellitus with ketoacidosis without coma (principal); N17.9 Acute kidney failure, unspecified; T38.3X6A Underdosing of insulin and oral hypoglycemic [antidiabetic] drugs, initial encounter; E11.22 Type 2 diabetes mellitus with diabetic chronic kidney disease; N18.9 Chronic kidney disease, unspecified; E86.0 Dehydration; K21.9 Gastro-esophageal reflux disease without esophagitis; M19.90 Unspecified osteoarthritis, unspecified site; E87.6 Hypokalemia; G83.34 Monoplegia, unspecified affecting left nondominant side; D69.6 Thrombocytopenia, unspecified; D70.9 Neutropenia, unspecified; N28.1 Cyst of kidney, acquired; E83.51 Hypocalcemia; N25.0 Renal osteodystrophy; R05 Cough; D72.819 Decreased white blood cell count, unspecified; Z83.3 Family history of diabetes mellitus; Z82.49 Family history of ischemic heart disease and other diseases of the circulatory system; Z79.4 Long term (current) use of insulin; Z91.120 Patient's intentional underdosing of medication regimen due to financial hardship; Z87.442 Personal history of urinary calculi; Z23 Encounter for immunization
CPT/HCPCS: 36415; 36600; 71045; 76775; 80048; 80053; 80061; 81001; 82040; 82803; 82962; 83036; 83735; 83970; 84100; 85025; 87086; 90471; 90686; 93005; 93010; 96360; 99291; G0008; J1644; J1815; J2405; J3490; J7030; J7120